=== PATIENT | female | born 1955 | race Caucasian/White ===

== ENCOUNTER 2018-09-11 17:59 | Inpatient (IN) ==
[2018-09-11 23:31] LABS: Hematocrit 18.2 % (35.3-44.9); Hemoglobin 6.1 g/dL (11.5-15.4); Mean Corpuscular HGB Conc 33.5 g/dL (31.6-35.5); Mean Corpuscular Hemoglobin 28.6 pg (28.0-33.3); Mean Corpuscular Volume 85.4 fL (83.0-100.0); Mean Platelet Volume 10.6 fL (9.4-12.4); Nucleated Red Blood Cells 5.5 /100 WBC (0); Platelet Count 166 K/mcL (140-400); Red Blood Count 2.13 M/mcL (3.82-4.97); Red Cell Distribution Width 17.2 % (11.5-14.5)
[2018-09-11 23:37] LABS: INR 1.5
[2018-09-11 23:40] LABS: Activated Partial Thrombo Time 28.8 Seconds (26.0-36.0)
[2018-09-11 23:52] LABS: Lymphocytes # 69.8 K/mcL (0.6-4.6); Neutrophils # 174.6 K/mcL (1.6-8.9); Toxic Granulation Present (Not Present)
[2018-09-11 23:53] LABS: Reactive Lymphocytes Present (Not Present)
[2018-09-12] MEDS ORDERED: Naloxone 0.4 MG/ML INJ IVP PRN (00:01)
[2018-09-12 00:03] LABS: Calcium 7.5 mg/dL (8.6-10.3); Magnesium 2.2 mg/dL (1.6-2.6); Potassium 4.4 mEq/L (3.5-5.1)
[2018-09-12] MEDS ORDERED: D5% in Water 1,000 ML IVC PRN (00:06)
[2018-09-12] MEDS ORDERED: Dextrose Gel 15 GM/37.5 ML TUBE PO PRN ×2 (00:06)
[2018-09-12] MEDS ORDERED: *HR* Dextrose 50 % in Water (Syg) 50 ML SYRINGE IVP PRN (00:06)
--- NOTE | 2018-09-12 00:11 | Internal Med History&Physical ---
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 Has not started treatment Discussed with Oncology, Dr. Iniguez Will start allopurinol 300mg once a day, rasburicase, hydroxyurea 1gBID Discussed with pharmacy who state we do not have rasburicase and will need to get it from the cancer center Repeat labs in am Oncology and Orthopedic surgery recommending transfer to tertiary center for further management of CML with possible blast crisis and tumor lysis syndrome as well as left lower extremity hematoma with concern of gas forming organism. Patient;s condition is critical. Discussed with Yesi at [facility] transfer center at 0200. Discussed with them again at 0230. Accepting physician is Dr. Laureano with hematology. They will call back when a bed becomes available. (2) CML (chronic myelocytic leukemia) Current visit: Yes Status: Acute WBC 349.2 D/w oncology. Likely CML with possible blast crisis as blasts in May 2018 elevated at 2 and patient has elevated lymphocytes Peripheral smear, BCR-ABL minor and major quant ordered ordered. Patient will require treatment and Oncology recommending transfer to tertiary facility (3) Hematoma Current visit: Yes Status: Acute CT LLE with concerns of infected hematoma with gas-forming organism. CT A/P with small hematoma in subq fat overlying lateral superior L gluteal musculature extending inferiorly to left leg Patient has no history of aspiration to the left lower extremity. Patient received vancomycin and Zosyn at [facility]. Will continue. Blood cultures pending. Need to monitor for compartment syndrome Discussed with orthopedic surgery, Dr. Ramos, who is also recommending transfer to tertiary facility given the patient's other acute issues (4) Sepsis Current visit: Yes Status: Acute Tachycardia, leukocytosis, tachypnea Elevated lactic acid of >10, now 2.4 Patient did have a period of hypotension requiring levophed. BP now normotensive, off levophed CXR without acute abnormality UA without UTI Blood cultures x2 pending Continue IV vancomycin and zosyn Concern for gas forming organism with hematoma of left lower extremity Qualifiers: Sepsis type: sepsis due to unspecified organism Qualified Code(s): A41.9 - Sepsis, unspecified organism (5) Acute encephalopathy Current visit: Yes Status: Acute Likely metabolic encephalopathy multifactorial due to electrolyte abnormalities, sepsis, metabolic acidosis, possible opiate use Patient is more alert and following commands CT with loss of coughlin/white matter differentiation within superior cerebellum bilaterally Will need MRI to further assess Patient following commands and has non focal exam (6) Elevated troponin Current visit: Yes Status: Acute Troponin elevated at 0.05 and 0.07 No chest pain or history of CAD EKG at [facility] with heart rate 101, no acute ST elevated or depression Likely demand ischemia from metabolic acidosis Continue to trend (7) Metabolic acidosis Current visit: No Status: Acute Initial ABG with pH 7.18, pCO2 14, pO2 57, bicarb 8 Patient has BENNIE with electrolyte abn concerning for tumor lysis syndrome Repeat ABG after sodium bicarb and IVFs at [facility] with pH 7.42, pCO2 33, pO2 61, bicarb 20 Continue maintenance fluids and monitor (8) Acute renal failure Current visit: No Status: Acute Initial BUN 42, Cr 3.66, GFR 12. Repeat BUN 46, Cr 2.80, GFR 17 No history of CKD Associated with electrolyte abnormalities concerning for TLS Continue maintenance fluids and monitor Plan as above (9) Anemia Current visit: No Status: Acute Likely due to extensive hematoma in left lower extremity Hgb 6.2, decreased from 10 Hgb 6.1 here. S/p 1 unit pRBC at [facility] Type and screen and transfuse additonal 2 units pRBCs Continue to monitor H/H Qualifiers: Anemia type: unspecified type Qualified Code(s): D64.9 - Anemia, unspecified (10) Hyperkalemia Current visit: No Status: Resolved Internal Medicine - H&P: HPI Chief complaint: AMS Admitted From: Hospital to Hospital Transfer Plans for Post Hospital Care: Transfer Other ([facility]) History of present illness: Ms. Nair is a 63 year old female with past medical history including hyperlipidemia, hypertension, has MRDD and lives at longterm, able to perform independent tasks and ambulate independently, has home health care givers, presenting as a transfer from [facility] to our ICU. Patient's guardian and family members at bedside to assist with history. Patient was recently diagnosed with leukemia. Family does not know what type of leukemia the patient has. She has an appointment with oncology on September 18. She has not started any treatment for this. 2 days ago, the patient had a mechanical fall. She tripped over her shoe hitting her left knee and left hip. She went to the emergency department at that time. X-ray imaging was obtained that showed no acute fracture of the left knee or hip. She was sent home with Watson for pain as needed. Yesterday, a home health aide arrived to the patient's house and found the patient with an altered mental status and decreas ed alertness. She did take a Watson approximately 8 hours prior to this. As the day went on, the patient still had a decreased mental status from her baseline and was not following commands. She normally is able to speak however she was not speaking. EMS was called and the patient was sent to [facility]. Initial white blood count was greater than 440. Hemoglobin was 6.2. Hematocrit 19.2. MCV 94.6. Platelet count 233. Initial ABG showed pH 7.18, PCO2 14, PO2 57. Potassium was elevated at 6.1. BUN elevated at 42, creatinine 3.66. Patient has no history of chronic kidney disease. The patient was noted to have metabolic acidosis with hyperkalemia, acute renal failure, anemia. CT head was obtained and showed loss of coughlin/white matter differentiation within the superior cerebellum bilaterally. MRI is recommended for further evaluation. On arrival, the patient did have a low blood pressure and received 2 L of normal saline. She did receive an amp of sodium bicarbonate and was started on levophed. Blood cultures were obtained and the patient received vancomycin and Zosyn. The patient also received 1 unit PRBC as her hemoglobin had dropped from 10-6.1. She was sent here for further management. On arrival to our facility, the patient has been oxygenating on nasal cannula. Her blood pressures were normotensive and pressors were discontinued. Patient i s alert and following commands. However she is not talking. Family at bedside state the patient is much more alert however is not back to baseline. Patient does have mild left lower extremity pain. Family states the left knee and lower extremity is much more swollen and has increased bruising from the knee and thigh. She has not been using a walker to ambulate. Family denies any other active bleeding such as hematuria or hematochezia. Past Med Surg Social Fam HX - Past Medical History Source: old records reviewed, obtained from family Medical history: GERD, hyperlipidemia, hypertension, other Additional medical history: MRDD Psychiatric history: anxiety - Social History Smoking Status: Never smoker Smokeless Tobacco Status: No Alcohol use: none Drug use: none Internal Medicine - H&P: Meds ALPRAZolam [Xanax 0.5 MG Tablet] 0.5 mg PO TID PRN 09/10/18 [History] Ferrous Sulfate [Iron] 325 mg PO DAILY 09/10/18 [History] Fesoterodine Fumarate [Toviaz] 8 mg PO DAILY 09/10/18 [History] Omeprazole [PriLOSEC] 20 mg PO BID 09/10/18 [History] RX: Lisinopril [Zestril] 20 mg PO DAILY 09/10/18 [History] RX: Perphenazine 4 mg PO DAILY 09/10/18 [History] Simvastatin [Zocor] 40 mg PO HS 09/10/18 [History] [place]-3 Fatty Acids [Fish Oil] 300 mg PO DAILY 09/11/18 [History] RX: Docusate [Colace] 100 mg PO PRN PRN 09/11/18 [History] Allergy/AdvReac Type Severity Reaction Status Date / Time No Known Allergies Allergy Verified 09/10/18 15:25 ROS unobtainable: due to mental status (altered mental status) All Systems PM: A 10-system review of systems was performed and is negative for pertinent findings except as documented above in the HPI. - Constitutional Vitals: Temp Pulse Resp BP Pulse Ox 96.4 F L 105 22 103/52 97 09/11/18 22:00 09/11/18 23:00 09/11/18 23:00 09/11/18 23:00 09/11/18 23:00 General appearance: Present: cooperative, pleasant, no acute distress Exam: Head: atraumatic, normocephalic Eyes: PERRL, normal conjunctiva ENT: oral mucosa moist Neck: supple, trachea midline Chest: symmetrical chest wall rise Respiratory: clear to auscultation bilaterally without wheezing Cardiovascular: RRR, no murmur. Palpable dorsalis pedis pulses bilaterally Abdomen: soft, nontender, nondistended Extremity: Ruddy bandage removed from left knee. Significant swelling of left knee with ecchymosis and hematoma extending from anterior portion of left knee to posterior thigh into the buttocks. Two bulla on medial left knee. Tender to palpation and decreased ROM secondary to pain and swelling. 1+ pitting edema of left calf. extremities warm with normal capillary refill Neurologic exam: follows commands appropriately. Unable to assess speech or orientation as patient is not speaking. CN II-XII intact. No sensory deficit. Strength diminished bilaterally but equal Psych: normal mood and affect Skin: warm and dry Internal Med - H&P Results - Labs CBC & Chem 7: 09/11/18 22:46 09/11/18 22:46 Labs: Short CBC 09/11/18 Range/Units 22:46 WBC 349.2 H* (4.3-11.1) K/mcL Hgb 6.1 L (11.5-15.4) g/dL Hct 18.2 L (35.3-44.9) % Plt Count 166 (140-400) K/mcL Neutrophils # 174.6 H (1.6-8.9) K/mcL BMP 09/11/18 22:46 Sodium 139 Potassium 4.4 D Chloride 103 Carbon Dioxide 20 L BUN 46 H Creatinine 2.80 H Glucose 117 H Calcium 7.5 L <Elabor,Abdulrahma - Last Filed: 09/12/18 05:57> Date of Encounter: 09/11/18 All Systems PM: A 10-system review of systems was performed and is negative for pertinent findings except as documented above in the HPI. - Constitutional Vitals: Temp Pulse Resp BP Pulse Ox 99.1 F 96 21 99/53 97 09/12/18 00:54 09/12/18 03:16 09/12/18 03:00 09/12/18 03:00 09/12/18 03:00 Internal Med - H&P Results - Labs CBC & Chem 7: 09/12/18 04:37 09/12/18 04:37 Labs: Short CBC 09/11/18 Range/Units 22:46 WBC 349.2 H* (4.3-11.1) K/mcL Hgb 6.1 L (11.5-15.4) g/dL Hct 18.2 L (35.3-44.9) % Plt Count 166 (140-400) K/mcL Neutrophils # 174.6 H (1.6-8.9) K/mcL BMP 09/11/18 22:46 Sodium 139 Potassium 4.4 D Chloride 103 Carbon Dioxide 20 L BUN 46 H Creatinine 2.80 H Glucose 117 H Calcium 7.5 L Cardiac Enzymes 09/11/18 Range/Units 22:46 Troponin I 0.07 H* (< 0.04) ng/mL - Impressions ITS Impressions Abdomen/Pelvis CT 09/12/18 00:01 IMPRESSION: 1. Small hematoma in the subcutaneous fat overlying the lateral superior left gluteal musculature. There is significant infiltration of the subcutaneous fat extending from this site inferiorly into the left leg. No acute osseous abnormality is identified. 2. Hepatosplenomegaly. D/ / Tariq Tate MD / Tariq Tate MD Interpreting Provider: Tariq Tate MD Lower Extremity CT 09/12/18 00:01 IMPRESSION: No acute bony abnormalities. Large mildly heterogeneous high attenuation fluid collection, partially imaged, within the subcutaneous fat of the visualized left lower extremity within visualized thigh medially and into the anterior knee felt to be compatible with large hematoma. Proximal aspect excluded from field of view. No thickened rim identified. However, there are some punctate foci of gas noted within portions of the collection in the mid to distal thigh. Correlate clinically as to recent aspiration or other intervention. In the absence of this a secondarily infected hematoma with gas-forming organism cannot be excluded and consideration can be given to aspiration. D/ / Stanley Martinez MD / Stanley Martinez MD Interpreting Provider: Stanley Martinez MD - Attending Attestation I performed a history and physical exam of the patient on 09/11/18 and discussed management with the resident. I reviewed the resident's note and agree with the documented findings and plan of care. Nataliia Nair is a 63 year old woman with MRDD and CML who reportedly suffered a fall recently with trauma to her left knee. She was given pain medications for the hematoma formation. Staff from her longterm brought her back to the ER for AMS, seemingly less responsive and not answering commands. Lab work revealed a marked elevation in her leukocyte count, elevsted serum creatinine, potassium, phosphorus and uric acid which is suspicious to me for tumor lysis syndrome. Her initial lactate was also greater than 10. This summer physical exam, her knee dressing was on done for our visualization and revealed a significantly edematous lower extremity with taut skin, circumferentially tense with some bullae formation and massive ecchymotic/hematoma formation in the medial aspect of the leg. Fluid resuscitati on/vasopressor support was started for her hypotension, empiric abx and measures to countrt the tumor lydid Fluid resuscitation/vasopressor support was started for her hypotension, empiric abx and measures to counter the tumor lysis were instituted promptly. She has diminished pulses on the left leg which concerned me for compartment syndrome and therefore a CT scan was done of her leg, revealing foci of gas as well as a massive hematoma. Given the drop in her hemoglobin I wanted to assess for bleeding elsewhere so a CT abdomen was done also showing bloody changes too. We contacted our orthopedics and oncology consultants who state that she will be better served being transferred to [facility]. In the interim will transfuse her blood, provide the necessary intensive care prior to transfer. CCT 65 mins. MARIA DE JESUS LEBRON.
[2018-09-12] MEDS ORDERED: RASBURICASE IV ONE ×3 (01:18→08:45)
[2018-09-12] MEDS ORDERED: SODIUM CHLORIDE 0.9% IV ONE ×3 (01:18→08:45)
[2018-09-12 01:31] LABS: Troponin I 0.07 ng/mL (< 0.04)
[2018-09-12] MEDS: Hydroxyurea 500 MG CAPSULE PO SCH ×3 (02:09→08:45)
[2018-09-12] MEDS: 0.9 % Sodium Chloride 1,000 ML IVC SCH ×2 (02:09→10:57)
[2018-09-12 05:08] LABS: Nucleated Red Blood Cells 4.9 /100 WBC (0)
[2018-09-12 05:09] LABS: Hematocrit 17.5 % (35.3-44.9); Mean Corpuscular HGB Conc 33.1 g/dL (31.6-35.5); Mean Corpuscular Hemoglobin 28.2 pg (28.0-33.3); Mean Platelet Volume 10.4 fL (9.4-12.4); Platelet Count 156 K/mcL (140-400); Red Blood Count 2.06 M/mcL (3.82-4.97); Red Cell Distribution Width 17.3 % (11.5-14.5)
[2018-09-12 05:20] LABS: Albumin 3.5 g/dL (3.5-5.7); Albumin/Globulin Ratio 1.8 (1.1-2.2); Bilirubin,Direct 0.1 mg/dL (0.0-0.2); Bilirubin,Indirect 0.2 mg/dL (0.0-1.2); Bilirubin,Total 0.3 mg/dL (0.3-1.0); Calcium 7.4 mg/dL (8.6-10.3); Magnesium 2.1 mg/dL (1.6-2.6); Phosphorous 6.3 mg/dL (2.7-4.5); Potassium 4.6 mEq/L (3.5-5.1); Total Protein 5.5 g/dL (6.4-8.9)
[2018-09-12 05:40] LABS: Hemoglobin 5.8 g/dL (11.5-15.4)
[2018-09-12] MEDS ORDERED: Piperacillin/Tazobactam 3.375 GM in 0.9 % Sodium Chloride Mini Bag 100 ML IVPB SCH (06:00)
[2018-09-12 06:25] LABS: Basophils # 11.3 K/mcL (0.0-0.2); Eosinophils # 5.7 K/mcL (0.0-0.6); Monocytes # 11.3 K/mcL (0.0-1.3); Neutrophils # 130.2 K/mcL (1.6-8.9)
[2018-09-12 06:26] LABS: Platelet Estimate Normal (Normal)
[2018-09-12 06:28] LABS: Hypochromasia Present (Not Present); Macrocytosis Present (Not Present); Polychromasia 1+ (Not Present)
[2018-09-12 06:29] LABS: Smudge Cells Present (Not Present)
[2018-09-12 06:30] LABS: Large Platelets Present (Not Present)
[2018-09-12] MEDS ORDERED: Clindamycin 900 MG/50 ML 900 MG/50 ML IV.SOLN IVPB SCH (09:00)
[2018-09-12] MEDS ORDERED: Hydroxyurea 500 MG CAPSULE PO SCH ×2 (09:00)
[2018-09-12] MEDS ORDERED: Perphenazine 2 MG TABLET PO SCH (09:00)
[2018-09-12] MEDS ORDERED: Vancomycin 500 MG in 0.9 % Sodium Chloride Mini Bag 100 ML IVPB ONE (09:00)
[2018-09-12 10:25] LABS: INR 1.4; Prothrombin Time 15.7 Seconds (9.4-12.1)
--- NOTE | 2018-09-12 10:56 | Pulmonology Progress Note ---
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 Current Visit: Yes Status: Acute (2) Knee contusion Current Visit: No Status: Acute (3) Metabolic acidosis Current Visit: No Status: Acute (4) Acute renal failure Current Visit: No Status: Acute Qualifiers: Acute renal failure type: unspecified Qualified Code(s): N17.9 - Acute kidney failure, unspecified (5) CML (chronic myelocytic leukemia) Current Visit: Yes Status: Acute (6) Tumor lysis syndrome Current Visit: Yes Status: Acute (7) Sepsis Current Visit: Yes Status: Acute Qualifiers: Sepsis type: sepsis due to unspecified organism Qualified Code(s): A41.9 - Sepsis, unspecified organism Objective PUL Vital signs: Last Vital Signs Temp 98.8 F 09/12/18 12:15 Pulse 90 09/12/18 12:15 Resp 16 09/12/18 12:15 BP 99/45 09/12/18 12:15 Pulse Ox 95 09/12/18 12:15 Results - Laboratory Findings CBC and BMP: 09/12/18 11:00 09/12/18 04:37 PT/INR, D-dimer PT 15.7 Seconds (9.4-12.1) H 09/12/18 09:41 Abnormal lab findings: Abnormal lab results WBC 242.5 K/mcL (4.3-11.1) H* 09/12/18 11:00 RBC 2.03 M/mcL (3.82-4.97) L 09/12/18 11:00 Hgb 5.7 g/dL (11.5-15.4) L* 09/12/18 11:00 Hct 16.7 % (35.3-44.9) L 09/12/18 11:00 MCV 82.3 fL (83.0-100.0) L 09/12/18 11:00 RDW 17.4 % (11.5-14.5) H 09/12/18 11:00 Band Neutrophils % 6.0 % (0-4) H 09/12/18 04:37 Metamyelocytes % 2.0 % (0) H 09/12/18 04:37 Myelocytes % 24.0 % (0) H 09/12/18 04:37 Promyelocytes % 6.0 % (0) H 09/12/18 04:37 Neutrophils # 130.2 K/mcL (1.6-8.9) H 09/12/18 04:37 Lymphocytes # 34.0 K/mcL (0.6-4.6) H 09/12/18 04:37 Monocytes # 11.3 K/mcL (0.0-1.3) H 09/12/18 04:37 Eosinophils # 5.7 K/mcL (0.0-0.6) H 09/12/18 04:37 Basophils # 11.3 K/mcL (0.0-0.2) H 09/12/18 04:37 Nucleated RBCs/100 WBC 4.9 /100 WBC (0) H 09/12/18 04:37 Reactive Lymphocytes Present (Not Present) A 09/11/18 22:46 Smudge Cells Present (Not Present) A 09/12/18 04:37 Toxic Granulation Present (Not Present) A 09/11/18 22:46 Large Platelets Present (Not Present) A 09/12/18 04:37 Polychromasia 1+ (Not Present) A 09/12/18 04:37 Hypochromasia Present (Not Present) A 09/12/18 04:37 Macrocytosis Present (Not Present) A 09/12/18 04:37 PT 15.7 Seconds (9.4-12.1) H 09/12/18 09:41 Carbon Dioxide 20 mEq/L (23-29) L 09/12/18 04:37 BUN 49 mg/dL (8-23) H 09/12/18 04:37 Creatinine 2.44 mg/dL (0.60-1.20) H 09/12/18 04:37 Est GFR ( Amer) 24 (> 60) L 09/12/18 04:37 Est GFR (Non-Af Amer) 20 (> 60) L 09/12/18 04:37 Calculated Osmolality 303 (280-300) H 09/12/18 04:37 Uric Acid 12.8 mg/dL (2.3-7.6) H 09/12/18 11:00 Calcium 7.4 mg/dL (8.6-10.3) L 09/12/18 04:37 Phosphorus 6.3 mg/dL (2.7-4.5) H 09/12/18 04:37 AST 64 Units/L (13-39) H 09/12/18 04:37 Lactate Dehydrogenase 1003 Units/L (140-271) H 09/12/18 04:37 Creatine Kinase 1162 Units/L (30-223) H 09/12/18 09:30 Troponin I 0.07 ng/mL (< 0.04) H* 09/11/18 22:46 Serum Total Protein 5.5 g/dL (6.4-8.9) L 09/12/18 04:37 Globulin 2.0 g/dL (2.4-3.5) L 09/12/18 04:37 - Microbiology Findings Microbiology Findings: Microbiology, Last 48 Hours 09/11/18 23:07 Blood Culture - Preliminary Peripheral Venipuncture Culture is incubating and being continuously monitored for growth. Final report to follow. 09/11/18 23:11 Blood Culture - Preliminary Peripheral Venipuncture Culture is incubating and being continuously monitored for growth. Final report to follow. - Clinical Findings Intake & Output: Intake & Output 09/11/18 09/12/18 09/12/18 23:59 07:59 15:59 Intake Total 1385 / 1385 Output Total 775 / 775 175 / 175 Balance -775 / -775 1210 / 1210 Weight 66.4 kg 66.4 kg Consult Discharge Plan - Plan Referrals: NONE,PCP [Primary Care Provider] - - Attending Attestation I examined this patient and my medical decision-making was reviewed with the Resident Physician. I agree with the documented findings, disposition and treatment plan as described except to the extent set forth below. We independently had [id number] contact with the patient I spent 45min of Critical Care time with this patient. It involved decision making of high complexity to assess, manipulate, and support vital organ system failure and/or to prevent further life threatening deterioration of the patient's condition. The time involved in the performance of separately reportable procedures was not counted toward critical care time. Patient seen and examined at bedside Labs, radiology, chart personally reviewed. Management was reviewed during multidisciplinary critical care rounds. DIRECTOR OF CATERING: Patient is awake and following commands no gross deficits. Head CT done overnight showed loss of coughlin/white matter differentiation within this. Cerebellum bilaterally and MRI was recommended do not feel the patient is stable for MRI at this moment and currently neurologically intact and we will continue to monitor this very closely however. Pulm: Acceptable oxygenation on 2LNC can use PAP as needed for hypoxia she is at risk of hydrostatic pulmonary edema because of volume overload Cards: BP monitored has been on lower side but no evidence of shock physiology. MAP has been >65 GI: NPO for now Renal: BENNIE s/t to Rhabdo and TLS. Cont Fluid Hydration. UOP Monitored, Cont to Trend sCr and monitor Electrolytes. ID: [id number] for severe sepsis ?infection of LE with Gas forming organism cont broad-spectrum antibiotic she was started on the Zosyn and vancomycin and I have added clindamycin we will de-escalate based upon culture and sensitivities. May need surgical intervention and Ortho has been consulted Heme/Onc: New diagnosis of CML suspect blast crisis hydroxyurea has been given. Patient also has tumor lysis syndrome and has been started on rasburicase and allopurinol appreciate oncology recommendations. Repeat uric acid pending. She does have evidence of daily a which to some degree is likely related to blood loss in addition to leukemia plan for transfusion Endo: Glucose Monitored Integ/MSK: Skin Care per routine ICU Nursing Protocol to prevent ulcers. Lines: All lines examined without evidence of infection : She does have an e xpanding left knee hematoma and I have concern for developing compartment syndrome CPK is elevated today but lower extremity on the left is neurovascularly intact. I have spoken directly with the orthopedic surgeon attending Dr. Ramos regarding my concern for evaluation of compartment syndrome and/or developing thereof. His recommendations were to consult interventional radiology for possible drainage and did agree to come and evaluate the patient Dispo: Tertiary Referral [facility] ([facility]) CODE: DNAR/DNI Patient is MRDD and has a legal guardian who I updated regarding clinical course. Patient high risk of further deterioration <Elysia Al P - Last Filed: 09/12/18 17:30> Date of Encounter: 09/12/18 Time of Encounter: 10:00 Assessment and Plan (1) Tumor lysis syndrome Current Visit: Yes Status: Acute The patient has history of CML with blast crisis phase She has elevated white cell count 349.2- 242.5 (the latest one) The patient has BUN 49 and creatinine 2.44, lactate dehydrogenase 1003, uric acid level 12.8 ,creatinine kinase 1162, troponin 0.07, phosphorus 6.3, calcium 7.4 Plan : Oncology team has been consulted Allopurinol has been started, hydroxyurea and rasburicase has also been ordered. IV hydration with with Ringer lactate . (2) Traumatic hematoma of left lower leg with infection Current Visit: Yes Status: Acute The patient has history of fall and injury to left lower extremity, swelling and bruises over left high and leg T LLE with concerns of infected hematoma with gas-forming organism. CT A/P with small hematoma in subq fat overlying lateral superior L gluteal musculature extending inferiorly to left leg Patient has no history of aspiration to the left lower extremity. Patient received vancomycin and Zosyn at [place]. Will continue. Blood cultures pending. Need to monitor for compartment syndrome Discussed with orthopedic surgery, Dr. Ramos, who is also recommending transfer to tertiary facility given the patient's other acute issues. (3) Acute renal failure Current Visit: No Status: Acute Initial BUN 42, Cr 3.66, GFR 12. Repeat BUN 46, Cr 2.80, GFR 17 No history of CKD Associated with electrolyte abnormalities concerning for TLS Continue maintenance fluids and monitor Qualifiers: Acute renal failure type: unspecified Qualified Code(s): N17.9 - Acute kidney failure, unspecified (4) CML (chronic myelocytic leukemia) Current Visit: Yes Status: Acute WBC 349.2 D/w oncology. Likely CML with possible blast crisis as blasts in May 2018 elevated at 2 and patient has elevated lymphocytes Peripheral smear, BCR-ABL minor and major quant ordered ordered. Patient will require treatment and Oncology recommending transfer to tertiary facility (5) Acute encephalopathy Current Visit: Yes Status: Acute Likely metabolic encephalopathy multifactorial due to electrolyte abnormalities, sepsis, metabolic acidosis, possible opiate use Patient is more alert and following commands CT with loss of coughlin/white matter differentiation within superior cerebellum bilaterally Will need MRI to further assess Patient following commands and has non focal exam (6) Sepsis Current Visit: Yes Status: Acute Tachycardia, leukocytosis, tachypnea Elevated lactic acid of >10, now 2.4 Patient did have a period of hypotension requiring levophed. BP now normotensive, off levophed CXR without acute abnormality UA without UTI Blood cultures x2 pending Continue IV vancomycin and zosyn Concern for gas forming organism with hematoma of left lower extremity Qualifiers: Sepsis type: sepsis due to unspecified organism Qualified Code(s): A41.9 - Sepsis, unspecified organism (7) Anemia Current Visit: No Status: Acute Likely due to extensive hematoma in left lower extremity Hgb 6.2, decreased from 10 Hgb 6.1 here. S/p 1 unit pRBC at [facility] and screen and transfuse additonal 2 units pRBCs Continue to monitor H/H Qualifiers: Anemia type: unspecified type Qualified Code(s): D64.9 - Anemia, unspecified Subjective Principal diagnosis: CML, Tumour lysis syndrom , Acute encephalopathy,infected hematomal LLE Interval history: He is 63 year old female with past medical history including hyperlipidemia, hypertension, has MRDD and [facility], able to perform independent tasks and ambulate independently, has home health care givers, presenting as a transfer from [facility] to our ICU on 09/11. Patient has history of fall at home and altered mental status from baseline. The patient has had swelling and bruises over left lower extremity. Today during my bedside visit, the patient was lying on the bed, she was sleepy and confused, not in acute respiratory distress. Her vitals were blood pressure 112/50, saturation 93% with 2 L oxygen, pulse 81, respiration rate 20. Oncology team and orthopedic team has been consulted, patient was suggested to transfer to another center for further management. Today she has been transferred to [facility]. Objective PUL Vital signs: Last Vital Signs Temp 99.3 F 09/12/18 07:30 Pulse 90 09/12/18 09:00 Resp 20 09/12/18 09:00 BP 113/54 09/12/18 09:00 Pulse Ox 98 09/12/18 09:00 General appearance: appears uncomfortable Eyes: nonicteric ENT: oropharynx dry Neck: supple Effort: mildly labored Cardiovascular: regular rate and rhythm Gastrointestinal: normoactive bowel sounds, soft, non-tender, non-distended Integumentary: normal Extremities: pink and warm, edema, other (Swelling , bruises over left thigh /anetromedially and left lower leg ) Musculoskeletal: joint tenderness CN II-XII normal other (Pt was confused and sleepy ) Results - Laboratory Findings CBC and BMP: 09/12/18 11:00 09/12/18 04:37 PT/INR, D-dimer PT 15.7 Seconds (9.4-12.1) H 09/12/18 09:41 Abnormal lab findings: Abnormal lab results WBC 283.0 K/mcL (4.3-11.1) H* 09/12/18 04:37 RBC 2.06 M/mcL (3.82-4.97) L 09/12/18 04:37 Hgb 5.8 g/dL (11.5-15.4) L* 09/12/18 04:37 Hct 17.5 % (35.3-44.9) L 09/12/18 04:37 RDW 17.3 % (11.5-14.5) H 09/12/18 04:37 Band Neutrophils % 6.0 % (0-4) H 09/12/18 04:37 Metamyelocytes % 2.0 % (0) H 09/12/18 04:37 Myelocytes % 24.0 % (0) H 09/12/18 04:37 Promyelocytes % 6.0 % (0) H 09/12/18 04:37 Neutrophils # 130.2 K/mcL (1.6-8.9) H 09/12/18 04:37 Lymphocytes # 34.0 K/mcL (0.6-4.6) H 09/12/18 04:37 Monocytes # 11.3 K/mcL (0.0-1.3) H 09/12/18 04:37 Eosinophils # 5.7 K/mcL (0.0-0.6) H 09/12/18 04:37 Basophils # 11.3 K/mcL (0.0-0.2) H 09/12/18 04:37 Nucleated RBCs/100 WBC 4.9 /100 WBC (0) H 09/12/18 04:37 Reactive Lymphocytes Present (Not Present) A 09/11/18 22:46 Smudge Cells Present (Not Present) A 09/12/18 04:37 Toxic Granulation Present (Not Present) A 09/11/18 22:46 Large Platelets Present (Not Present) A 09/12/18 04:37 Polychromasia 1+ (Not Present) A 09/12/18 04:37 Hypochromasia Present (Not Present) A 09/12/18 04:37 Macrocytosis Present (Not Present) A 09/12/18 04:37 PT 15.7 Seconds (9.4-12.1) H 09/12/18 09:41 Carbon Dioxide 20 mEq/L (23-29) L 09/12/18 04:37 BUN 49 mg/dL (8-23) H 09/12/18 04:37 Creatinine 2.44 mg/dL (0.60-1.20) H 09/12/18 04:37 Est GFR ( Amer) 24 (> 60) L 09/12/18 04:37 Est GFR (Non-Af Amer) 20 (> 60) L 09/12/18 04:37 Calculated Osmolality 303 (280-300) H 09/12/18 04:37 Uric Acid 17.9 mg/dL (2.3-7.6) H 09/11/18 22:47 Calcium 7.4 mg/dL (8.6-10.3) L 09/12/18 04:37 Phosphorus 6.3 mg/dL (2.7-4.5) H 09/12/18 04:37 AST 64 Units/L (13-39) H 09/12/18 04:37 Lactate Dehydrogenase 1003 Units/L (140-271) H 09/12/18 04:37 Creatine Kinase 1162 Units/L (30-223) H 09/12/18 09:30 Troponin I 0.07 ng/mL (< 0.04) H* 09/11/18 22:46 Serum Total Protein 5.5 g/dL (6.4-8.9) L 09/12/18 04:37 Globulin 2.0 g/dL (2.4-3.5) L 09/12/18 04:37 - Microbiology Findings Microbiology Findings: Microbiology, Last 48 Hours 09/11/18 23:07 Blood Culture - Preliminary Peripheral Venipuncture Culture is incubating and being continuously monitored for growth. Final report to follow. 09/11/18 23:11 Blood Culture - Preliminary Peripheral Venipuncture Culture is incubating and being continuously monitored for growth. Final report to follow. - Clinical Findings Intake & Output: Intake & Output 09/11/18 09/12/18 09/12/18 23:59 07:59 15:59 Output Total 775 / 775 Balance -775 / -775 Weight 66.4 kg 66.4 kg
--- NOTE | 2018-09-12 11:07 | Event Note ---
Date of Encounter: 09/12/18 Time of Encounter: 11:05 Overview in brief full note to come Patient was signed out to me by the overnight covering resident at 7 AM overnight diagnosis include CML with the possible blast crisis and tumor lysis syndrome and traumatic hematoma with concern for expansion along with the severe sepsis possibly gas-forming organism from infection of the left knee hematoma. Patient has been accepted in transfer to [facility] in interim rasburicase has been given along with allopurinol and hydroxyurea at the consultation with the oncologist. I have also consulted orthopedic surgery to evaluate the patient for evaluation of compartment syndrom.e CPK level this morning was approx 1200 and patient remains on broad-spectrum antibiotics with the addition of clindamycin. The patient has MRDD and I did update her legal guardian with the plan of care
[2018-09-12] MEDS ORDERED: 0.9 % Sodium Chloride 250 ML ONE (11:09)
[2018-09-12] MEDS ORDERED: Ringers Solution, Lactated 1,000 ML IVC SCH (11:15)
[2018-09-12 11:16] LABS: Red Blood Count 2.03 M/mcL (3.82-4.97); Red Cell Distribution Width 17.4 % (11.5-14.5)
[2018-09-12 11:17] LABS: Hematocrit 16.7 % (35.3-44.9); Mean Corpuscular HGB Conc 34.1 g/dL (31.6-35.5); Mean Corpuscular Hemoglobin 28.1 pg (28.0-33.3); Mean Corpuscular Volume 82.3 fL (83.0-100.0); Mean Platelet Volume 10.8 fL (9.4-12.4); Platelet Count 150 K/mcL (140-400)
[2018-09-12 12:20] LABS: Hemoglobin 5.7 g/dL (11.5-15.4)
--- NOTE | 2018-09-12 13:24 | Orthopedic Consult Note ---
Date of Encounter: 09/13/18 Time of Encounter: 12:40 Assessment and Plan (1) Hematoma Status: Acute Discussed case with Dr. Ramos and reviewed CT with him. CT shows large fluid collection to the medial thigh and anterior knee consistent with large hematoma with punctate foci of gas and recommendation for aspiration. Large hematoma is visibly noted to medial thigh/anterior knee on exam, compartments are soft and no concern for compartment syndrome at this time. Due to patients medical history/ CML not recommended as a surgical candidate at this time. Recommend IR do a CT guided aspiration of the hematoma and leave a drain in for probable continued drainage. Recommend culture of the fluid as well due to the gas formation shown on CT. Patient is planned for transfer to [facility] once a bed is available and per nurse will possibly be transfered soon before aspiration can be performed. Can apply compression nita wraps to help prevent hematoma increasing in size Will continue to monitor while patient still at [place] if surgical intervention becomes necessary but again transfer will likely happen today. Pain control per primary team. Lower Extremity CT 09/12/18 00:01 IMPRESSION: No acute bony abnormalities. Large mildly heterogeneous high attenuation fluid collection, partially imaged, within the subcutaneous fat of the visualized left lower extremity within visualized thigh medially and into the anterior knee felt to be compatible with large hematoma. Proximal aspect excluded from field of view. No thickened rim identified. However, there are some punctate foci of gas noted within portions of the collection in the mid to distal thigh. Correlate clinically as to recent aspiration or other intervention. In the absence of this a secondarily infected hematoma with gas-forming organism cannot be excluded and consideration can be given to aspiration. D/ / 09/12/2018 07:11:51 Stanley Martinez MD / [email or web address] Interpreting Provider: Stanley Martinez MD History of Present Illness Chief complaint: left leg swelling HPI: Ms. Nair is a 63 year old female with medical history of HTN, HLB, MRDD living in a skilled nursing and recent diagnosis of CML was originally seen in the ER for left knee pain on 09/10 after she tripped over her shoes at home that day. Xrays at that time showed no acute bony abnormalities and she was discharged with norco. She was taken to [facility] early this morning by EMS due to altered mental status and was transferred to [facility] ICU due to findings of sepsis, metabolic acidosis, acute renal failure, hyperkalemia, anemia, tumor lysis syndrome, acute encephalopathy. Orthopedics was consulted due to large traumatic hematoma to left medial thigh and anterior knee. CT showed large fluid collection consistent with a hematoma with punctate foci of gas formation. Patient was sleeping on exam, nurse present states patient has been very drowsy since admission and no family present. All history from nurse and previous documentation. Patient is planned to transfer to [facility] for further care as soon as a bed becomes available. Past Med Surg Social Fam HX - Past Medical History Medical history: GERD, hyperlipidemia, hypertension, other Additional medical history: MRDD Psychiatric history: anxiety - Social History Smoking Status: Never smoker Smokeless Tobacco Status: No Alcohol use: none Drug use: none Medications and Allergies ALPRAZolam [Xanax 0.5 MG Tablet] 0.5 mg PO TID PRN 09/10/18 [History] Ferrous Sulfate [Iron] 325 mg PO DAILY 09/10/18 [History] Fesoterodine Fumarate [Toviaz] 8 mg PO DAILY 09/10/18 [History] Lisinopril [Zestril] 20 mg PO DAILY 09/10/18 [History] Omeprazole [PriLOSEC] 20 mg PO BID 09/10/18 [History] Perphenazine 4 mg PO DAILY 09/10/18 [History] Simvastatin [Zocor] 40 mg PO HS 09/10/18 [History] Docusate [Colace] 100 mg PO PRN PRN 09/11/18 [History] Drums-3 Fatty Acids [Fish Oil] 300 mg PO DAILY 09/11/18 [History] Allergy/AdvReac Type Severity Reaction Status Date / Time No Known Allergies Allergy Verified 09/10/18 15:25 ROS unobtainable: due to mental status All Systems Reviewed: The remainder of the systems were reviewed and are negative Physical Exam - Constitutional Vitals: Temp Pulse Resp BP Pulse Ox 98.8 F 90 16 99/45 95 09/12/18 12:15 09/12/18 12:15 09/12/18 12:15 09/12/18 12:15 09/12/18 12:15 - Knee left Appearance: ecchymosis (There is swelling and significant ecchymosis noted to left medial thigh/knee extending to anterior knee. no noted erythema. small fluid blisters noted to medial thigh. compartments are soft to palpation. no pain response ellicited with palpation of the hip, knee or calf. Patient unable to follow commands at this time. pedal pulse noted, brisk cap refill to digits.) Results - Labs Result Diagrams: 09/12/18 11:00 09/12/18 04:37 Labs: Abnormal lab results WBC 242.5 K/mcL (4.3-11.1) H* 09/12/18 11:00 RBC 2.03 M/mcL (3.82-4.97) L 09/12/18 11:00 Hgb 5.7 g/dL (11.5-15.4) L* 09/12/18 11:00 Hct 16.7 % (35.3-44.9) L 09/12/18 11:00 MCV 82.3 fL (83.0-100.0) L 09/12/18 11:00 RDW 17.4 % (11.5-14.5) H 09/12/18 11:00 Band Neutrophils % 6.0 % (0-4) H 09/12/18 04:37 Metamyelocytes % 2.0 % (0) H 09/12/18 04:37 Myelocytes % 24.0 % (0) H 09/12/18 04:37 Promyelocytes % 6.0 % (0) H 09/12/18 04:37 Neutrophils # 130.2 K/mcL (1.6-8.9) H 09/12/18 04:37 Lymphocytes # 34.0 K/mcL (0.6-4.6) H 09/12/18 04:37 Monocytes # 11.3 K/mcL (0.0-1.3) H 09/12/18 04:37 Eosinophils # 5.7 K/mcL (0.0-0.6) H 09/12/18 04:37 Basophils # 11.3 K/mcL (0.0-0.2) H 09/12/18 04:37 Nucleated RBCs/100 WBC 4.9 /100 WBC (0) H 09/12/18 04:37 Reactive Lymphocytes Present (Not Present) A 09/11/18 22:46 Smudge Cells Present (Not Present) A 09/12/18 04:37 Toxic Granulation Present (Not Present) A 09/11/18 22:46 Large Platelets Present (Not Present) A 09/12/18 04:37 Polychromasia 1+ (Not Present) A 09/12/18 04:37 Hypochromasia Present (Not Present) A 09/12/18 04:37 Macrocytosis Present (Not Present) A 09/12/18 04:37 PT 15.7 Seconds (9.4-12.1) H 09/12/18 09:41 Carbon Dioxide 20 mEq/L (23-29) L 09/12/18 04:37 BUN 49 mg/dL (8-23) H 09/12/18 04:37 Creatinine 2.44 mg/dL (0.60-1.20) H 09/12/18 04:37 Est GFR ( Amer) 24 (> 60) L 09/12/18 04:37 Est GFR (Non-Af Amer) 20 (> 60) L 09/12/18 04:37 Calculated Osmolality 303 (280-300) H 09/12/18 04:37 Uric Acid 12.8 mg/dL (2.3-7.6) H 09/12/18 11:00 Calcium 7.4 mg/dL (8.6-10.3) L 09/12/18 04:37 Phosphorus 6.3 mg/dL (2.7-4.5) H 09/12/18 04:37 AST 64 Units/L (13-39) H 09/12/18 04:37 Lactate Dehydrogenase 1003 Units/L (140-271) H 09/12/18 04:37 Creatine Kinase 1162 Units/L (30-223) H 09/12/18 09:30 Troponin I 0.07 ng/mL (< 0.04) H* 09/11/18 22:46 Serum Total Protein 5.5 g/dL (6.4-8.9) L 09/12/18 04:37 Globulin 2.0 g/dL (2.4-3.5) L 09/12/18 04:37 H & H 09/11/18 09/12/18 09/12/18 Range/Units 22:46 04:37 11:00 Hgb 6.1 L 5.8 L* 5.7 L* (11.5-15.4) g/dL Hct 18.2 L 17.5 L 16.7 L (35.3-44.9) % All other labs normal. - Diagnostic results Knee x-ray: report reviewed, image reviewed Knee CT: report reviewed, image reviewed Consult Discharge Plan - Plan Referrals: NONE,PCP [Primary Care Provider] - - Attending Attestation Case and plan of care discussed with supervising physician, Dr. Ramos, who was available for all aspects of care.
--- NOTE | 2018-09-12 13:54 | Oncology Inp Consult Note ---
Date of Encounter: 09/12/18 - Data of Consult Requesting Physician: Stanley Pond Primary Care Provider: PCP NONE Past Med Surg Social Fam HX - Past Medical History Medical history: GERD, hyperlipidemia, hypertension, other Additional medical history: MRDD Psychiatric history: anxiety - Social History Smoking Status: Never smoker Smokeless Tobacco Status: No Alcohol use: none Drug use: none Medications and Allergies ALPRAZolam [Xanax 0.5 MG Tablet] 0.5 mg PO TID PRN 09/10/18 [History] Ferrous Sulfate [Iron] 325 mg PO DAILY 09/10/18 [History] Fesoterodine Fumarate [Toviaz] 8 mg PO DAILY 09/10/18 [History] Lisinopril [Zestril] 20 mg PO DAILY 09/10/18 [History] Omeprazole [PriLOSEC] 20 mg PO BID 09/10/18 [History] Perphenazine 4 mg PO DAILY 09/10/18 [History] Simvastatin [Zocor] 40 mg PO HS 09/10/18 [History] Docusate [Colace] 100 mg PO PRN PRN 09/11/18 [History] Vanzant-3 Fatty Acids [Fish Oil] 300 mg PO DAILY 09/11/18 [History] Allergy/AdvReac Type Severity Reaction Status Date / Time No Known Allergies Allergy Verified 09/10/18 15:25 Consult Discharge Plan - Plan Referrals: NONE,PCP [Primary Care Provider] -
[2018-09-12 16:12] VITALS: BP 112/50
[2018-09-12] MEDS ORDERED: Aminoglycoside Consult 1 EACH MC ONE (16:34)
--- NOTE | 2018-09-12 17:30 | Discharge Summary ---
<Elysia Al P - Last Filed: 09/13/18 06:45> - NOTES TO OUTPATIENT PROVIDER Notes to Outpatient Provider: Patient has been transferred to [facility]: [facility] on 09/12/2018 @ 4;30 PM Orders not resulted at time of discharge: Pending orders 09/11/18 23:07 Culture,Blood [BC] Stat 09/12/18 04:37 BCR-ABL1 Major(p210) Quant Stat BCR-ABL1 Minor(p190) Quant Stat 09/12/18 09:46 Red Blood Cells [BBK] Stat Type and Screen [BBK] Stat 09/12/18 13:43 BCR-ABL1t(9;22)Diag,Rflx Quant Stat 09/12/18 16:00 Lactate [Lactic Acid] Timed Date of Encounter: 09/13/18 Time of Encounter: 06:46 - Discharge Diagnosis (1) Tumor lysis syndrome Priority: Primary Status: Acute (2) Traumatic hematoma of left lower leg with infection Priority: Primary Status: Acute Qualifiers: Encounter type: initial encounter Qualified Code(s): S80.12XA - Contusion of left lower leg, initial encounter; L08.9 - Local infection of the skin and subcutaneous tissue, unspecified (3) Acute renal failure Priority: Primary Status: Acute Qualifiers: Acute renal failure type: unspecified Qualified Code(s): N17.9 - Acute ki dney failure, unspecified (4) CML (chronic myelocytic leukemia) Priority: Primary Status: Acute (5) Acute encephalopathy Priority: Primary Status: Acute (6) Sepsis Priority: Primary Status: Acute Qualifiers: Sepsis type: sepsis due to unspecified organism Qualified Code(s): A41.9 - Sepsis, unspecified organism (7) Anemia Priority: Primary Status: Acute Qualifiers: Anemia type: unspecified type Qualified Code(s): D64.9 - Anemia, unspecified - Discharge Medications Prescriptions: Continue RX: Docusate [Colace] 100 mg PO PRN PRN PRN Reason: Constipation RX: [place]-3 Fatty Acids [Fish Oil] 300 mg PO DAILY RX: ALPRAZolam [Xanax 0.5 MG Tablet] 0.5 mg PO TID PRN PRN Reason: Anxiety RX: Simvastatin [Zocor] 40 mg PO HS RX: Fesoterodine Fumarate [Toviaz] 8 mg PO DAILY RX: Ferrous Sulfate [Iron] 325 mg PO DAILY RX: Perphenazine 4 mg PO DAILY RX: Omeprazole [PriLOSEC] 20 mg PO BID RX: Lisinopril [Zestril] 20 mg PO DAILY Home Medications: RX: ALPRAZolam [Xanax 0.5 MG Tablet] 0.5 mg PO TID PRN 09/10/18 [History] RX: Ferrous Sulfate [Iron] 325 mg PO DAILY 09/10/18 [History] RX: Fesoterodine Fumarate [Toviaz] 8 mg PO DAILY 09/10/18 [History] RX: Lisinopril [Zestril] 20 mg PO DAILY 09/10/18 [History] RX: Omeprazole [PriLOSEC] 20 mg PO BID 09/10/18 [History] RX: Perphenazine 4 mg PO DAILY 09/10/18 [History] RX: Simvastatin [Zocor] 40 mg PO HS 09/10/18 [History] RX: Docusate [Colace] 100 mg PO PRN PRN 09/11/18 [History] RX: [place]-3 Fatty Acids [Fish Oil] 300 mg PO DAILY 09/11/18 [History] Allergies/Adverse Reactions: Allergy/AdvReac Type Severity Reaction Status Date / Time No Known Allergies Allergy Verified 09/10/18 15:25 Labs on day of discharge: Labs from last 24 hours 09/12/18 09/12/18 09/12/18 11:00 11:00 11:00 WBC 242.5 H* RBC 2.03 L Hgb 5.7 L* Hct 16.7 L MCV 82.3 L MCH 28.1 MCHC 34.1 RDW 17.4 H Plt Count 150 MPV 10.8 Seg Neutrophils % Band Neutrophils % Lymphocytes % Monocytes % Eosinophils % Basophils % Metamyelocytes % Myelocytes % Promyelocytes % Neutrophils # Lymphocytes # Monocytes # Eosinophils # Basophils # Nucleated RBCs/100 WBC Reactive Lymphocytes Smudge Cells Toxic Granulation Platelet Estimate Large Platelets Polychromasia Hypochromasia Macrocytosis Smear Path Review PT INR APTT Sodium Potassium Chloride Carbon Dioxide BUN Creatinine Est GFR ( Amer) Est GFR (Non-Af Amer) BUN/Creatinine Ratio Glucose Calculated Osmolality Lactic Acid 1.2 Uric Acid 12.8 H Calcium Phosphorus Magnesium Total Bilirubin Direct Bilirubin Indirect Bilirubin AST ALT Alkaline Phosphatase Lactate Dehydrogenase Creatine Kinase Troponin I Serum Total Protein Albumin Globulin Albumin/Globulin Ratio Stl C. diff Tox B Gene Blood Type Antibody Screen Crossmatch 09/12/18 09/12/18 09/12/18 09:46 09:41 09:30 WBC RBC Hgb Hct MCV MCH MCHC RDW Plt Count MPV Seg Neutrophils % Band Neutrophils % Lymphocytes % Monocytes % Eosinophils % Basophils % Metamyelocytes % Myelocytes % Promyelocytes % Neutrophils # Lymphocytes # Monocytes # Eosinophils # Basophils # Nucleated RBCs/100 WBC Reactive Lymphocytes Smudge Cells Toxic Granulation Platelet Estimate Large Platelets Polychromasia Hypochromasia Macrocytosis Smear Path Review PT 15.7 H INR 1.4 APTT Sodium Potassium Chloride Carbon Dioxide BUN Creatinine Est GFR ( Amer) Est GFR (Non-Af Amer) BUN/Creatinine Ratio Glucose Calculated Osmolality Lactic Acid Uric Acid Calcium Phosphorus Magnesium Total Bilirubin Direct Bilirubin Indirect Bilirubin AST ALT Alkaline Phosphatase Lactate Dehydrogenase Creatine Kinase 1162 H Troponin I Serum Total Protein Albumin Globulin Albumin/Globulin Ratio Stl C. diff Tox B Gene Blood Type O POSITIVE Antibody Screen NEGATIVE Crossmatch See Detail 09/12/18 09/12/18 09/12/18 09:27 04:37 04:37 WBC RBC Hgb Hct MCV MCH MCHC RDW Plt Count MPV Seg Neutrophils % Band Neutrophils % Lymphocytes % Monocytes % Eosinophils % Basophils % Metamyelocytes % Myelocytes % Promyelocytes % Neutrophils # Lymphocytes # Monocytes # Eosinophils # Basophils # Nucleated RBCs/100 WBC Reactive Lymphocytes Smudge Cells Toxic Granulation Platelet Estimate Large Platelets Polychromasia Hypochromasia Macrocytosis Smear Path Review PT INR APTT Sodium Potassium Chloride Carbon Dioxide BUN Creatinine Est GFR ( Amer) Est GFR (Non-Af Amer) BUN/Creatinine Ratio Glucose Calculated Osmolality Lactic Acid 1.3 1.5 Uric Acid Calcium Phosphorus Magnesium Total Bilirubin Direct Bilirubin Indirect Bilirubin AST ALT Alkaline Phosphatase Lactate Dehydrogenase 1003 H Creatine Kinase Troponin I Serum Total Protein Albumin Globulin Albumin/Globulin Ratio Stl C. diff Tox B Gene Blood Type Antibody Screen Crossmatch 09/12/18 09/12/18 09/12/18 04:37 04:37 03:48 WBC 283.0 H* RBC 2.06 L Hgb 5.8 L* Hct 17.5 L MCV 85.0 MCH 28.2 MCHC 33.1 RDW 17.3 H Plt Count 156 MPV 10.4 Seg Neutrophils % 40.0 Band Neutrophils % 6.0 H Lymphocytes % 12.0 Monocytes % 4.0 Eosinophils % 2.0 Basophils % 4.0 Metamyelocytes % 2.0 H Myelocytes % 24.0 H Promyelocytes % 6.0 H Neutrophils # 130.2 H Lymphocytes # 34.0 H Monocytes # 11.3 H Eosinophils # 5.7 H Basophils # 11.3 H Nucleated RBCs/100 WBC 4.9 H Reactive Lymphocytes Smudge Cells Present A Toxic Granulation Platelet Estimate Normal Large Platelets Present A Polychromasia 1+ A Hypochromasia Present A Macrocytosis Present A Smear Path Review See Below PT INR APTT Sodium 140 Potassium 4.6 Chloride 105 Carbon Dioxide 20 L BUN 49 H Creatinine 2.44 H Est GFR ( Amer) 24 L Est GFR (Non-Af Amer) 20 L BUN/Creatinine Ratio 20 Glucose 96 Calculated Osmolality 303 H Lactic Acid Uric Acid Calcium 7.4 L Phosphorus 6.3 H Magnesium 2.1 Total Bilirubin 0.3 Direct Bilirubin 0.1 Indirect Bilirubin 0.2 AST 64 H ALT 28 Alkaline Phosphatase 82 Lactate Dehydrogenase Creatine Kinase 1237 H Troponin I Serum Total Protein 5.5 L Albumin 3.5 Globulin 2.0 L Albumin/Globulin Ratio 1.8 Stl C. diff Tox B Gene Negative Blood Type Antibody Screen Crossmatch 09/11/18 09/11/18 09/11/18 23:11 22:47 22:46 WBC RBC Hgb Hct MCV MCH MCHC RDW Plt Count MPV Seg Neutrophils % Band Neutrophils % Lymphocytes % Monocytes % Eosinophils % Basophils % Metamyelocytes % Myelocytes % Promyelocytes % Neutrophils # Lymphocytes # Monocytes # Eosinophils # Basophils # Nucleated RBCs/100 WBC Reactive Lymphocytes Smudge Cells Toxic Granulation Platelet Estimate Large Platelets Polychromasia Hypochromasia Macrocytosis Smear Path Review PT INR APTT Sodium 139 Potassium 4.4 D Chloride 103 Carbon Dioxide 20 L BUN 46 H Creatinine 2.80 H Est GFR ( Amer) 21 L Est GFR (Non-Af Amer) 17 L BUN/Creatinine Ratio 16 Glucose 117 H Calculated Osmolality 301 H Lactic Acid 2.4 H Uric Acid 17.9 H Calcium 7.5 L Phosphorus 7.0 H Magnesium 2.2 Total Bilirubin Direct Bilirubin Indirect Bilirubin AST ALT Alkaline Phosphatase Lactate Dehydrogenase Creatine Kinase Troponin I 0.07 H* Serum Total Protein Albumin Globulin Albumin/Globulin Ratio Stl C. diff Tox B Gene Blood Type Antibody Screen Crossmatch 09/11/18 09/11/18 22:46 22:46 WBC 349.2 H* RBC 2.13 L Hgb 6.1 L Hct 18.2 L MCV 85.4 D MCH 28.6 MCHC 33.5 RDW 17.2 H Plt Count 166 MPV 10.6 Seg Neutrophils % 46.0 Band Neutrophils % 4.0 Lymphocytes % 20.0 Monocytes % Eosinophils % 4.0 Basophils % Metamyelocytes % 4.0 H Myelocytes % 10.0 H Promyelocytes % 12.0 H Neutrophils # 174.6 H Lymphocytes # 69.8 H Monocytes # Eosinophils # 14.0 H Basophils # Nucleated RBCs/100 WBC 5.5 H Reactive Lymphocytes Present A Smudge Cells Toxic Granulation Present A Platelet Estimate Large Platelets Polychromasia Hypochromasia Macrocytosis Smear Path Review PT 17.0 H INR 1.5 APTT 28.8 Sodium Potassium Chloride Carbon Dioxide BUN Creatinine Est GFR ( Amer) Est GFR (Non-Af Amer) BUN/Creatinine Ratio Glucose Calculated Osmolality Lactic Acid Uric Acid Calcium Phosphorus Magnesium Total Bilirubin Direct Bilirubin Indirect Bilirubin AST ALT Alkaline Phosphatase Lactate Dehydrogenase Creatine Kinase Troponin I Serum Total Protein Albumin Globulin Albumin/Globulin Ratio Stl C. diff Tox B Gene Blood Type Antibody Screen Crossmatch Preliminary micro results at discharge 09/11/18 23:07 Blood Culture - Preliminary Peripheral Venipuncture Culture is incubating and being continuously monitored for growth. Final report to follow. 09/11/18 23:11 Blood Culture - Preliminary Peripheral Venipuncture Culture is incubating and being continuously monito red for growth. Final report to follow. - Impressions ITS Impressions Abdomen/Pelvis CT 09/12/18 00:01 IMPRESSION: 1. Small hematoma in the subcutaneous fat overlying the lateral superior left gluteal musculature. There is significant infiltration of the subcutaneous fat extending from this site inferiorly into the left leg. No acute osseous abnormality is identified. 2. Hepatosplenomegaly. D/ / Tariq Tate MD / Tariq Taet MD Interpreting Provider: Tariq Tate MD Lower Extremity CT 09/12/18 00:01 IMPRESSION: No acute bony abnormalities. Large mildly heterogeneous high attenuation fluid collection, partially imaged, within the subcutaneous fat of the visualized left lower extremity within visualized thigh medially and into the anterior knee felt to be compatible with large hematoma. Proximal aspect excluded from field of view. No thickened rim identified. However, there are some punctate foci of gas noted within portions of the collection in the mid to distal thigh. Correlate clinically as to recent aspiration or other intervention. In the absence of this a secondarily infected hematoma with gas-forming organism cannot be excluded and consideration can be given to aspiration. D/ / 09/12/2018 07:11:51 Stanley Martinez MD / [email or web address] Interpreting Provider: Stanley Martinez MD Date of admission: 09/11/18 22:13 Primary care physician: PCP NONE Consults: 09/12/18 00:01 Consult to Pulmonology [CONS] Routine Consulting Provider: [facility] [place] Reason for Consult: was requiring levophed en route Call Completed: No 09/12/18 00:55 Consult to Oncology [CONS] Routine Consulting Provider: [facility] Reason for Consult: leukemia, concern for blast crisis versus tumor lisis syndrome Call Completed: Yes 09/12/18 01:28 Consult to Orthopedic Surgery [CONS] Routine Consulting Provider: [facility] Reason for Consult: LLE hematoma with gas Call Completed: Yes 09/12/18 11:36 Consult to Interventional Radiology [CONS] Stat Consulting Provider: Radiology Interventional Col[facility] Reason for Consult: CT GUIDED ABCESS DRAINAGE OF LLE Call Completed: Yes - Patient Status Disposition: Transfer Short-Term Hosp Condition: Critical Overall status at discharge: patient is not back to baseline - Discharge Instructions Follow Up With: NONE,PCP [Primary Care Provider] - - Hospital Course Hospital course: Ms. Nair is a 63 year old female - Time Spent with Patient Ms Love is a 63 year old female with past medical history including hyperlipidemia, hypertension, has MRDD , [facility], able to perform independent tasks and ambulate independently, under home health care givers, presenting as a transfer from [facility] to our ICU. Patient was recently diagnosed with leukemia and has had an appointment with oncology on September 18, not started treatment yet. The patient had a mechanical fall at home 2 days back . She tripped over her shoe hitting her left knee and left hip. At ED X-ray imaging was obtained that showed no acute fracture of the left knee or hip. She was sent home with App47 , but a home health aide with an altered mental status and decreased alertness. She did take a App47 teresa roximately 8 hours prior to this. As the day went on, the patient still had a decreased mental status from her baseline and was not following commands. EMS was called and the patient was sent to [facility]. Initial white blood count was greater than 440. Hemoglobin was 6.2. Hematocrit 19.2. MCV 94.6. Platelet count 233. Initial ABG showed pH 7.18, PCO2 14, PO2 57. Potassium was elevated at 6.1. BUN elevated at 42, creatinine 3.66. Patient has no history of chronic kidney disease. The patient was noted to have metabolic acidosis with hyperkalemia, acute renal failure, anemia. CT head was obtained and showed loss of coughlin/white matter differentiation within the superior cerebellum bilaterally. On arrival, the patient did have a low blood pressure and received 2 L of normal saline. She did receive an amp of sodium bicarbonate and was started on levophed. Blood cultures were obtained and the patient received vancomycin and Zosyn. The patient also received 1 unit PRBC as her hemoglobin had dropped from 10-6.1. She was sent to [place] for further management. Here in [place] , the patient was admitted in ICU, oncologist and orthopedic doctor has been consulted. Aggressive hydration, treatment with allopurinol , xydroxyurea and resburicase has been ordered. As before orthopedic surgery and oncology consultation, she has been planned to sent to [facility] . During my bedside visit @ 4 PM : her vitals were stable ,blood pressure 112/50, respiration 20, pulse 81, temperature 98.7 F MR saturation 93% on 2 L oxygen via nasal cannula. So the patient has been transferred to [facility] on 09/12/2018 @ 4:30 PM Physical Examination Vital Signs: Vital Signs, Last 4 Hours Temp Pulse Resp BP Pulse Ox 09/12/18 16:00 81 20 112/50 93 09/12/18 15:10 86 09/12/18 15:00 98.7 F 88 18 113/50 92 09/12/18 14:00 85 20 107/52 96 General appearance: alert, appears uncomfortable, other ( slightly confused , ill looking , pale) Eyes: nonicteric ENT: oropharynx dry Neck: supple Effort: mildly labored Cardiovascular: regular rate and rhythm Gastrointestinal: normoactive bowel sounds, soft, non-tender, non-distended Integumentary: cellulitis, other (SWelling in left lower extremity , bruises and echymoses present .) Extremities: edema Musculoskeletal: joint tenderness Gait: other (Pain and swelling and limited ROM in left Knee and HIp Joint ) pupils equal and round, motor strength normal and symmetric, other (Sleepy and slightly confused ) anxious <Doroteo Orellana W - Last Filed: 09/13/18 16:10> Orders not resulted at time of discharge: Pending orders 09/11/18 23:07 Culture,Blood [BC] Stat 09/12/18 04:37 BCR-ABL1 Major(p210) Quant Stat BCR-ABL1 Minor(p190) Quant Stat 09/12/18 09:46 Red Blood Cells [BBK] Stat Type and Screen [BBK] Stat Date of Encounter: 09/13/18 - Discharge Diagnosis (1) 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 Status: Acute (2) Knee contusion Status: Acute (3) Metabolic acidosis Status: Acute (4) Acute renal failure Status: Acute Qualifiers: Acute renal failure type: unspecified Qualified Code(s): N17.9 - Acute kidney failure, unspecified (5) CML (chronic myelocytic leukemia) Status: Acute (6) Tumor lysis syndrome Status: Acute (7) Sepsis Status: Acute Qualifiers: Sepsis type: sepsis due to unspecified organism Qualified Code(s): A41.9 - Sepsis, unspecified organism Labs on day of discharge: Labs from last 24 hours 09/12/18 09:46 Crossmatch See Detail Preliminary micro results at discharge 09/11/18 23:07 Blood Culture - Preliminary Peripheral Venipuncture Culture is incubating and being continuously monitored for growth. Final report to follow. 09/11/18 23:11 Blood Culture - Preliminary Peripheral Venipuncture Culture is incubating and being continuously monitored for growth. Final report to follow. - Impressions ITS Impressions Abdomen/Pelvis CT 09/12/18 00:01 IMPRESSION: 1. Small hematoma in the subcutaneous fat overlying the lateral superior left gluteal musculature. There is significant infiltration of the subcutaneous fat extending from this site inferiorly into the left leg. No acute osseous abnormality is identified. 2. Hepatosplenomegaly. D/ / Tariq Tate MD / Tariq Tate MD Interpreting Provider: Tariq Tate MD Lower Extremity CT 09/12/18 00:01 IMPRESSION: No acute bony abnormalities. Large mildly heterogeneous high attenuation fluid collection, partially imaged, within the subcutaneous fat of the visualized left lower extremity within visualized thigh medially and into the anterior knee felt to be compatible with large hematoma. Proximal aspect excluded from field of view. No thickened rim identified. However, there are some punctate foci of gas noted within portions of the collection in the mid to distal thigh. Correlate clinically as to recent aspiration or other intervention. In the absence of this a secondarily infected hematoma with gas-forming organism cannot be excluded and consideration can be given to aspiration. D/ / 09/12/2018 07:11:51 Stanley Martinez MD / [email or web address] Interpreting Provider: Stanley Martinez MD Date of admission: 09/11/18 22:13 Primary care physician: PCP NONE Consults: 09/12/18 00:01 Consult to Pulmonology [CONS] Routine Consulting Provider: [facility] Reason for Consult: was requiring levophed en route Call Completed: No 09/12/18 00:55 Consult to Oncology [CONS] Routine Consulting Provider: [facility] [place] Reason for Consult: leukemia, concern for blast crisis versus tumor lisis syndrome Call Completed: Yes 09/12/18 01:28 Consult to Orthopedic Surgery [CONS] Routine Consulting Provider: [facility] Reason for Consult: LLE hematoma with gas Call Completed: Yes 09/12/18 11:36 Consult to Interventional Radiology [CONS] Stat Consulting Provider: Radiology Interventional Cols Reason for Consult: CT GUIDED ABCESS DRAINAGE OF LLE Call Completed: Yes - Hospital Course Hospital course: Ms. Nair is a 63 year old female - Time Spent with Patient Total time spent providing and/or coordinating discharge services: - Attending Attestation I examined this patient and my medical decision-making was reviewed with the Re sident Physician. I agree with the documented findings, disposition and treatment plan as described except to the extent set forth below. We independently had [id number] contact with the patient 63-year-old woman presented after traumatic fall with altered mental status concern for CML with blast transformation tumor lysis syndrome sepsis and traumatic hematoma given complexity of case decision to transfer to [facility] for evaluation of possible blast crisis and chemotherapeutic options was evaluated by both oncology and orthopedics at this facility was transferred in stable condition
== END 2018-09-12 16:35 | disposition short-term general hospital (02) | DRG 871 ==
LOC: ICNU 22:13
PROVIDERS: ADMIT Internal Medicine; ATTEND Internal Medicine

== ENCOUNTER 2019-03-28 16:21 | Inpatient (IN) ==
[2019-03-28] MEDS ORDERED: Ibuprofen 600 MG TABLET PO PRN (18:59)
[2019-03-28] MEDS ORDERED: 0.9 % Sodium Chloride 1,000 ML IVC SCH (19:00)
[2019-03-28] MEDS ORDERED: Acetaminophen 325 MG TABLET PO PRN (19:00)
[2019-03-28] MEDS ORDERED: Ondansetron 4 MG/2 ML VIAL IVP PRN (19:45)
[2019-03-28] MEDS ORDERED: Naloxone 0.4 MG/ML INJ IVP PRN (19:45)
[2019-03-28] MEDS: 0.9 % Sodium Chloride 1,000 ML IVC SCH (20:31)
[2019-03-28] MEDS ORDERED: Acetaminophen IV 1,000 MG/100 ML INFUS..BTL IVPB ONE (23:44)
[2019-03-29] MEDS: 0.9 % Sodium Chloride 1,000 ML IVC SCH (03:20)
[2019-03-29 04:28] LABS: Red Cell Distribution Width 15.2 % (11.5-14.5)
[2019-03-29 04:29] LABS: Hematocrit 24.1 % (35.3-44.9); Hemoglobin 7.6 g/dL (11.5-15.4); Lymphocytes # 1.2 K/mcL (0.6-4.6); Lymphocytes % 72.1 %; Mean Corpuscular HGB Conc 31.5 g/dL (31.6-35.5); Mean Corpuscular Hemoglobin 25.8 pg (28.0-33.3); Mean Corpuscular Volume 81.7 fL (83.0-100.0); Mean Platelet Volume 9.5 fL (9.4-12.4); Monocytes # 0.4 K/mcL (0.0-1.3); Monocytes % 22.7 %; Neutrophils # 0.1 K/mcL (1.6-8.9); Red Blood Count 2.95 M/mcL (3.82-4.97); Segmented Neutrophils % 5.2 %; White Blood Count 1.7 K/mcL (4.3-11.1)
[2019-03-29 04:30] LABS: Platelet Count 74 K/mcL (140-400)
[2019-03-29 04:39] LABS: INR 1.2; Prothrombin Time 13.2 Seconds (9.4-12.1)
[2019-03-29 04:42] LABS: Activated Partial Thrombo Time 36.8 Seconds (26.0-36.0)
[2019-03-29 04:47] LABS: Chol/HDL Ratio 11.8 (0-4.9)
[2019-03-29 04:49] LABS: Albumin/Globulin Ratio 1.1 (1.1-2.2); Bilirubin,Total 0.3 mg/dL (0.3-1.0); Calcium 7.4 mg/dL (8.6-10.3); Globulin 2.7 g/dL (2.4-3.5); Magnesium 1.7 mg/dL (1.6-2.6); Phosphorous 3.4 mg/dL (2.7-4.5); Platelet Estimate Decreased (Normal); Potassium 3.9 mEq/L (3.5-5.1); Reactive Lymphocytes Present (Not Present); Total Protein 5.7 g/dL (6.4-8.9)
[2019-03-29] MEDS: Acetaminophen IV 1,000 MG/100 ML INFUS..BTL IVPB PRN ×2 (09:12→21:28)
[2019-03-29] MEDS ORDERED: 0.9 % Sodium Chloride 1,000 ML IVC SCH (11:15)
[2019-03-29] MEDS ORDERED: Furosemide 20 MG/2 ML VIAL IVP ONE (11:43)
[2019-03-29] MEDS ORDERED: Piperacillin/Tazobactam 3.375 GM in 0.9 % Sodium Chloride Mini Bag 100 ML IVPB SCH ×2 (12:00)
[2019-03-29 13:17] LABS: Bilirubin,Urine Negative (Negative); Blood,Urine Negative (Negative); Clarity,Urine Clear (Clear); Color,Urine Yellow (Yellow); Glucose,Urine (UA) Normal (Normal); Ketones,Urine Negative (Negative); Leukocyte Esterase,Urine Negative (Negative); Nitrite,Urine Negative (Negative); Protein,Urine 100 mg/dL (Neg-Trace); Specific Gravity,Urine 1.024 (1.010-1.025); Urobilinogen,Urine Normal (Normal)
[2019-03-29 13:20] LABS: Hyaline Casts,Urine None Seen per lpf (None-Few); Squamous Epithelial Cell,Urine Many per lpf (None-Few)
[2019-03-29 15:51] LABS: Bacteria,Urine Many per hpf (None-Few)
[2019-03-29 15:52] LABS: Granular Casts,Urine Few per lpf (None Seen)
[2019-03-29] MEDS: Piperacillin/Tazobactam 3.375 GM in 0.9 % Sodium Chloride Mini Bag 100 ML IVPB SCH (22:36)
[2019-03-30] MEDS: Piperacillin/Tazobactam 3.375 GM in 0.9 % Sodium Chloride Mini Bag 100 ML IVPB SCH ×3 (04:57→20:24)
[2019-03-30] MEDS ORDERED: Sennosides/Docusate Sodium TABLET PO PRN (07:39)
[2019-03-30] MEDS ORDERED: *HR* LORazepam 0.5 MG TABLET PO PRN (07:39)
[2019-03-30] MEDS ORDERED: Menthol 9.1 MG LOZENGE PO PRN (07:39)
[2019-03-30] MEDS: Acetaminophen IV 1,000 MG/100 ML INFUS..BTL IVPB PRN (09:39)
[2019-03-30] MEDS: Divalproex Sodium 125 MG CAPSULE PO SCH ×2 (09:43→20:26)
[2019-03-30] MEDS: Loratadine 10 MG TABLET PO SCH (09:44)
[2019-03-30] MEDS: *HR* LORazepam 0.5 MG TABLET PO SCH (09:44)
[2019-03-30] MEDS: Perphenazine 2 MG TABLET PO SCH (09:46)
[2019-03-30] MEDS: NILOTINIB HCL 200 MG PO SCH (09:46)
[2019-03-30 12:02] LABS: Hematocrit 22.8 % (35.3-44.9); Hemoglobin 7.2 g/dL (11.5-15.4); Mean Corpuscular HGB Conc 31.6 g/dL (31.6-35.5); Mean Corpuscular Hemoglobin 25.4 pg (28.0-33.3); Mean Corpuscular Volume 80.6 fL (83.0-100.0); Platelet Count 107 K/mcL (140-400); Red Blood Count 2.83 M/mcL (3.82-4.97); Red Cell Distribution Width 15.3 % (11.5-14.5); White Blood Count 2.5 K/mcL (4.3-11.1)
[2019-03-30 12:08] LABS: BUN/Creatinine Ratio 20 (6-26); Blood Urea Nitrogen 18 mg/dL (8-23); Calcium 8.2 mg/dL (8.6-10.3); Carbon Dioxide 19 mEq/L (23-29); Chloride 107 mEq/L (98-107); Glucose 99 mg/dL (70-105); Magnesium 1.7 mg/dL (1.6-2.6); Osmolality,Calculated 286 (280-300); Phosphorous 2.9 mg/dL (2.7-4.5); Potassium 3.7 mEq/L (3.5-5.1); Sodium 137 mEq/L (136-145); eGFR For African Americans > 60 (> 60); eGFR For Non-African Americans > 60 (> 60)
[2019-03-30 12:22] LABS: Lymphocytes # 1.7 K/mcL (0.6-4.6); Monocytes # 0.2 K/mcL (0.0-1.3); Neutrophils # 0.7 K/mcL (1.6-8.9); Platelet Estimate Slight Decrease (Normal)
[2019-03-30 19:26] LABS: Adenovirus Not Detected (Not Detect); Bordetella Pertussis Not Detected (Not Detect); Chlamydophila pneumoniae Not Detected (Not Detect); Coronavirus 229E Not Detected (Not Detect); Coronavirus HKU1 Not Detected (Not Detect); Coronavirus NL63 Not Detected (Not Detect); Coronavirus OC43 Not Detected (Not Detect); Human Metapneumovirus Not Detected (Not Detect); Human Rhinovirus/Enterovirus Not Detected (Not Detect); Influenza A Subtype 2009 H1 Not Detected (Not Detect); Influenza A Untypeable Not Detected (Not Detect); Influenza B Not Detected (Not Detect); Mycoplasma pneumoniae Not Detected (Not Detect); Parainfluenza Virus 1 Not Detected (Not Detect); Parainfluenza Virus 2 Not Detected (Not Detect); Parainfluenza Virus 3 Not Detected (Not Detect); Parainfluenza Virus 4 Not Detected (Not Detect); Respiratory Syncytial Virus Not Detected (Not Detect)
[2019-03-31 03:25] LABS: Basophils % 0.3 %; Eosinophils % 0.6 %; Hemoglobin 7.5 g/dL (11.5-15.4); Immature Granulocytes % 0.9 % (0-4); Lymphocytes # 1.8 K/mcL (0.6-4.6); Lymphocytes % 50.7 %; Mean Corpuscular HGB Conc 31.3 g/dL (31.6-35.5); Mean Corpuscular Hemoglobin 25.1 pg (28.0-33.3); Mean Corpuscular Volume 80.3 fL (83.0-100.0); Mean Platelet Volume 9.6 fL (9.4-12.4); Monocytes # 0.5 K/mcL (0.0-1.3); Monocytes % 14.4 %; Neutrophils # 1.2 K/mcL (1.6-8.9); Platelet Count 138 K/mcL (140-400); Red Blood Count 2.99 M/mcL (3.82-4.97); Red Cell Distribution Width 15.7 % (11.5-14.5); Segmented Neutrophils % 33.1 %; White Blood Count 3.5 K/mcL (4.3-11.1)
[2019-03-31 03:41] LABS: Platelet Estimate Decreased (Normal)
[2019-03-31 03:46] LABS: BUN/Creatinine Ratio 19 (6-26); Blood Urea Nitrogen 14 mg/dL (8-23); Calcium 8.3 mg/dL (8.6-10.3); Carbon Dioxide 19 mEq/L (23-29); Chloride 107 mEq/L (98-107); Glucose 97 mg/dL (70-105); Magnesium 1.6 mg/dL (1.6-2.6); Osmolality,Calculated 284 (280-300); Phosphorous 2.9 mg/dL (2.7-4.5); Potassium 3.7 mEq/L (3.5-5.1); Sodium 137 mEq/L (136-145); eGFR For African Americans > 60 (> 60); eGFR For Non-African Americans > 60 (> 60)
[2019-03-31] MEDS: Piperacillin/Tazobactam 3.375 GM in 0.9 % Sodium Chloride Mini Bag 100 ML IVPB SCH ×3 (04:30→20:56)
[2019-03-31] MEDS: NILOTINIB HCL 200 MG PO SCH (08:19)
[2019-03-31] MEDS: *HR* LORazepam 0.5 MG TABLET PO SCH (08:19)
[2019-03-31] MEDS: Loratadine 10 MG TABLET PO SCH (08:19)
[2019-03-31] MEDS: Perphenazine 2 MG TABLET PO SCH (08:19)
[2019-03-31] MEDS: Divalproex Sodium 125 MG CAPSULE PO SCH ×2 (08:19→20:58)
[2019-04-01 02:30] LABS: Hematocrit 24.5 % (35.3-44.9); Hemoglobin 7.8 g/dL (11.5-15.4); Lymphocytes # 2.3 K/mcL (0.6-4.6); Mean Corpuscular HGB Conc 31.8 g/dL (31.6-35.5); Mean Corpuscular Hemoglobin 25.4 pg (28.0-33.3); Mean Corpuscular Volume 79.8 fL (83.0-100.0); Mean Platelet Volume 9.3 fL (9.4-12.4); Platelet Count 152 K/mcL (140-400); Red Blood Count 3.07 M/mcL (3.82-4.97); Red Cell Distribution Width 15.5 % (11.5-14.5)
[2019-04-01 02:45] LABS: BUN/Creatinine Ratio 19 (6-26); Blood Urea Nitrogen 13 mg/dL (8-23); Calcium 8.4 mg/dL (8.6-10.3); Carbon Dioxide 20 mEq/L (23-29); Chloride 109 mEq/L (98-107); Glucose 93 mg/dL (70-105); Magnesium 1.5 mg/dL (1.6-2.6); Osmolality,Calculated 288 (280-300); Phosphorous 3.8 mg/dL (2.7-4.5); Potassium 3.9 mEq/L (3.5-5.1); Sodium 139 mEq/L (136-145); eGFR For African Americans > 60 (> 60); eGFR For Non-African Americans > 60 (> 60)
[2019-04-01 03:03] LABS: Anisocytosis 1+ (Not Present); Monocytes # 0.3 K/mcL (0.0-1.3); Neutrophils # 2.3 K/mcL (1.6-8.9)
[2019-04-01 03:04] LABS: Microcytosis Present (Not Present); Ovalocytes 1+ (Not Present); Platelet Estimate Normal (Normal)
[2019-04-01] MEDS: Piperacillin/Tazobactam 3.375 GM in 0.9 % Sodium Chloride Mini Bag 100 ML IVPB SCH ×3 (05:09→20:00)
[2019-04-01] MEDS: *HR* LORazepam 0.5 MG TABLET PO SCH (07:58)
[2019-04-01] MEDS: Loratadine 10 MG TABLET PO SCH (07:58)
[2019-04-01] MEDS: Divalproex Sodium 125 MG CAPSULE PO SCH ×2 (07:58→20:00)
[2019-04-01] MEDS: Perphenazine 2 MG TABLET PO SCH (07:58)
[2019-04-01] MEDS: NILOTINIB HCL 200 MG PO SCH (08:04)
[2019-04-01] MEDS ORDERED: Aminoglycoside Consult 1 EACH MC ONE (18:54)
[2019-04-02 02:19] LABS: Basophils % 0.3 %; Eosinophils # 0.1 K/mcL (0.0-0.6); Eosinophils % 0.8 %; Hematocrit 26.4 % (35.3-44.9); Hemoglobin 8.5 g/dL (11.5-15.4); Immature Granulocytes % 0.7 % (0-4); Lymphocytes # 2.4 K/mcL (0.6-4.6); Lymphocytes % 39.2 %; Mean Corpuscular HGB Conc 32.2 g/dL (31.6-35.5); Mean Corpuscular Hemoglobin 25.2 pg (28.0-33.3); Mean Corpuscular Volume 78.3 fL (83.0-100.0); Mean Platelet Volume 9.5 fL (9.4-12.4); Monocytes # 0.6 K/mcL (0.0-1.3); Monocytes % 9.5 %; Platelet Count 166 K/mcL (140-400); Red Blood Count 3.37 M/mcL (3.82-4.97); Red Cell Distribution Width 15.3 % (11.5-14.5); Segmented Neutrophils % 49.5 %; White Blood Count 6.1 K/mcL (4.3-11.1)
[2019-04-02 02:37] LABS: BUN/Creatinine Ratio 17 (6-26); Blood Urea Nitrogen 10 mg/dL (8-23); Calcium 8.4 mg/dL (8.6-10.3); Carbon Dioxide 21 mEq/L (23-29); Chloride 105 mEq/L (98-107); Glucose 90 mg/dL (70-105); Magnesium 1.5 mg/dL (1.6-2.6); Osmolality,Calculated 285 (280-300); Phosphorous 3.8 mg/dL (2.7-4.5); Potassium 3.7 mEq/L (3.5-5.1); Sodium 138 mEq/L (136-145); eGFR For African Americans > 60 (> 60); eGFR For Non-African Americans > 60 (> 60)
[2019-04-02] MEDS: Piperacillin/Tazobactam 3.375 GM in 0.9 % Sodium Chloride Mini Bag 100 ML IVPB SCH (03:05)
[2019-04-02 07:18] VITALS: BP 143/90
[2019-04-02] MEDS ORDERED: Ergocalciferol (VIT D2) 50,000 UNIT (1.25MG) CAP PO SCH (09:00)
[2019-04-02] MEDS ORDERED: Lactobacillus 1 EACH CAP.SPRINK PO SCH (09:00)
[2019-04-02] MEDS ORDERED: Lidocaine Viscous Oral Soln 15 ML SOLUTION MM SCH (09:34)
[2019-04-02] MEDS: Loratadine 10 MG TABLET PO SCH (15:46)
[2019-04-02] MEDS: *HR* LORazepam 0.5 MG TABLET PO SCH (15:46)
[2019-04-02] MEDS: Divalproex Sodium 125 MG CAPSULE PO SCH (15:46)
[2019-04-02] MEDS: Perphenazine 2 MG TABLET PO SCH (15:47)
[2019-04-02] MEDS ORDERED: Doxycycline 100 MG CAPSULE PO SCH (21:00)
== END 2019-04-02 18:55 | disposition home or self-care (01) | DRG 871 ==
LOC: 2NENU
PROVIDERS: ADMIT Internal Medicine; ATTEND Internal Medicine

== ENCOUNTER 2021-07-20 02:45 | Inpatient (IN) ==
[2021-07-20] MEDS ORDERED: Ondansetron 4 MG/2 ML VIAL IVP PRN (12:25)
[2021-07-20] MEDS ORDERED: Naloxone 0.4 MG/ML INJ IVP PRN (12:25)
[2021-07-20] MEDS ORDERED: Sennosides/Docusate Sodium TABLET PO PRN (12:26)
[2021-07-20] MEDS ORDERED: Perflutren Lipid Microsphere 1.3 ML in 0.9 % Sodium Chloride 8.7 ML IVP PRN (12:31)
[2021-07-20] MEDS: Aspirin 81 MG TAB.CHEW PO SCH (12:33)
[2021-07-20 14:55] LABS: Basophils % 0.3 %; Eosinophils # 0.1 K/mcL (0.0-0.6); Eosinophils % 0.8 %; Hematocrit 35.3 % (35.3-44.9); Hemoglobin 11.4 g/dL (11.5-15.4); Immature Granulocytes % 1.3 % (0-4); Lymphocytes # 3.8 K/mcL (0.6-4.6); Lymphocytes % 49.6 %; Mean Corpuscular HGB Conc 32.3 g/dL (31.6-35.5); Mean Corpuscular Hemoglobin 27.9 pg (28.0-33.3); Mean Corpuscular Volume 86.3 fL (83.0-100.0); Mean Platelet Volume 9.4 fL (9.4-12.4); Monocytes # 0.2 K/mcL (0.0-1.3); Neutrophils # 3.5 K/mcL (1.6-8.9); Platelet Count 147 K/mcL (140-400); Red Blood Count 4.09 M/mcL (3.82-4.97); Red Cell Distribution Width 15.4 % (11.5-14.5); White Blood Count 7.6 K/mcL (4.3-11.1)
[2021-07-20 15:22] LABS: BUN/Creatinine Ratio 24 (6-26); Blood Urea Nitrogen 20 mg/dL (8-23); Calcium 9.2 mg/dL (8.6-10.3); Carbon Dioxide 22 mEq/L (23-29); Chloride 102 mEq/L (98-107); Glucose 89 mg/dL (70-105); Magnesium 2.5 mg/dL (1.6-2.6); Osmolality,Calculated 290 (280-300); Potassium 3.8 mEq/L (3.5-5.1); Sodium 139 mEq/L (136-145); eGFR For African Americans > 60 (> 60); eGFR For Non-African Americans > 60 (> 60)
[2021-07-21 02:31] LABS: Basophils % 0.1 %; Eosinophils # 0.1 K/mcL (0.0-0.6); Eosinophils % 0.7 %; Hematocrit 33.2 % (35.3-44.9); Hemoglobin 10.6 g/dL (11.5-15.4); Immature Granulocytes % 1.4 % (0-4); Lymphocytes # 3.3 K/mcL (0.6-4.6); Lymphocytes % 43.4 %; Mean Corpuscular HGB Conc 31.9 g/dL (31.6-35.5); Mean Corpuscular Hemoglobin 27.5 pg (28.0-33.3); Mean Corpuscular Volume 86.2 fL (83.0-100.0); Monocytes # 0.5 K/mcL (0.0-1.3); Monocytes % 6.1 %; Neutrophils # 3.7 K/mcL (1.6-8.9); Platelet Count 133 K/mcL (140-400); Red Blood Count 3.85 M/mcL (3.82-4.97); Red Cell Distribution Width 15.3 % (11.5-14.5); Segmented Neutrophils % 48.3 %; White Blood Count 7.6 K/mcL (4.3-11.1)
[2021-07-21 02:38] LABS: INR 1.4; Prothrombin Time 15.6 Seconds (9.4-12.1)
[2021-07-21 03:11] LABS: Troponin I < 0.03 ng/mL (< 0.04)
[2021-07-21 04:16] LABS: BUN/Creatinine Ratio 24 (6-26); Blood Urea Nitrogen 18 mg/dL (8-23); Calcium 9.1 mg/dL (8.6-10.3); Carbon Dioxide 24 mEq/L (23-29); Chloride 102 mEq/L (98-107); Glucose 106 mg/dL (70-105); Magnesium 2.3 mg/dL (1.6-2.6); Osmolality,Calculated 286 (280-300); Potassium 4.3 mEq/L (3.5-5.1); Sodium 137 mEq/L (136-145); eGFR For African Americans > 60 (> 60); eGFR For Non-African Americans > 60 (> 60)
[2021-07-21 04:18] LABS: Alanine Aminotransferase 5 Units/L (7-52); Albumin/Globulin Ratio 1.3 (1.1-2.2); Aspartate Amino Transferase 8 Units/L (13-39); BUN/Creatinine Ratio 24 (6-26); Bilirubin,Total 0.3 mg/dL (0.3-1.0); Blood Urea Nitrogen 18 mg/dL (8-23); Calcium 9.2 mg/dL (8.6-10.3); Carbon Dioxide 24 mEq/L (23-29); Chloride 102 mEq/L (98-107); Chol/HDL Ratio 11.3 (0-4.9); Cholesterol 260 mg/dL (< 200); Globulin 3.2 g/dL (2.4-3.5); Glucose 103 mg/dL (70-105); HDL Cholesterol 23 mg/dL (40-59); Osmolality,Calculated 286 (280-300); Potassium 4.3 mEq/L (3.5-5.1); Sodium 137 mEq/L (136-145); Total Protein 7.2 g/dL (6.4-8.9); Triglycerides 596 mg/dL (< 150); eGFR For African Americans > 60 (> 60); eGFR For Non-African Americans > 60 (> 60)
[2021-07-21 05:21] LABS: LDL Cholesterol,Direct 129 mg/dL (75-193)
[2021-07-21 06:21] LABS: Alkaline Phosphatase 62 Units/L (34-104)
[2021-07-21] MEDS: Magnesium Oxide 400 MG TABLET PO SCH (08:56)
[2021-07-21] MEDS: *HR* LORazepam 0.5 MG TABLET PO SCH ×2 (08:56→22:34)
[2021-07-21] MEDS: Furosemide 20 MG TABLET PO SCH (08:56)
[2021-07-21] MEDS: lisinopriL 5 MG TABLET PO SCH (08:56)
[2021-07-21] MEDS: Perphenazine 2 MG TABLET PO SCH (08:56)
[2021-07-21] MEDS: Divalproex Sodium 125 MG Sprinkle Capsule (DR) PO SCH ×2 (08:56→22:34)
[2021-07-21] MEDS: Aspirin 81 MG TAB.CHEW PO SCH (08:56)
[2021-07-21] MEDS: NILOTINIB HCL 200 MG PO SCH ×2 (08:57→22:34)
[2021-07-21] MEDS ORDERED: Perphenazine 2 MG TABLET PO SCH (09:00)
[2021-07-21 09:13] LABS: Estimated Average Glucose 123 mg/dl; Hemoglobin A1C 5.9 %
[2021-07-22 03:36] LABS: Basophils % 0.2 %; Eosinophils % 0.2 %; Hematocrit 34.4 % (35.3-44.9); Hemoglobin 10.6 g/dL (11.5-15.4); Immature Granulocytes % 1.4 % (0-4); Lymphocytes # 3.4 K/mcL (0.6-4.6); Lymphocytes % 38.4 %; Mean Corpuscular HGB Conc 30.8 g/dL (31.6-35.5); Mean Corpuscular Hemoglobin 26.7 pg (28.0-33.3); Mean Corpuscular Volume 86.6 fL (83.0-100.0); Mean Platelet Volume 9.4 fL (9.4-12.4); Monocytes # 0.4 K/mcL (0.0-1.3); Monocytes % 4.5 %; Neutrophils # 4.9 K/mcL (1.6-8.9); Platelet Count 154 K/mcL (140-400); Red Blood Count 3.97 M/mcL (3.82-4.97); Red Cell Distribution Width 15.2 % (11.5-14.5); Segmented Neutrophils % 55.3 %; White Blood Count 8.8 K/mcL (4.3-11.1)
[2021-07-22 03:44] LABS: BUN/Creatinine Ratio 26 (6-26); Blood Urea Nitrogen 19 mg/dL (8-23); Calcium 9.3 mg/dL (8.6-10.3); Carbon Dioxide 23 mEq/L (23-29); Chloride 103 mEq/L (98-107); Glucose 101 mg/dL (70-105); Osmolality,Calculated 282 (280-300); Potassium 4.2 mEq/L (3.5-5.1); Sodium 135 mEq/L (136-145); eGFR For African Americans > 60 (> 60); eGFR For Non-African Americans > 60 (> 60)
[2021-07-22] MEDS: lisinopriL 5 MG TABLET PO SCH (08:38)
[2021-07-22] MEDS: Furosemide 20 MG TABLET PO SCH (08:38)
[2021-07-22] MEDS: Aspirin 81 MG TAB.CHEW PO SCH (08:38)
[2021-07-22] MEDS: Magnesium Oxide 400 MG TABLET PO SCH (08:38)
[2021-07-22] MEDS: Divalproex Sodium 125 MG Sprinkle Capsule (DR) PO SCH ×2 (08:38→20:31)
[2021-07-22] MEDS: *HR* LORazepam 0.5 MG TABLET PO SCH ×2 (08:38→20:31)
[2021-07-22] MEDS: Perphenazine 2 MG TABLET PO SCH (08:38)
[2021-07-22] MEDS: NILOTINIB HCL 200 MG PO SCH ×2 (08:39→20:31)
[2021-07-22 20:30] VITALS: TEMP 98.4
[2021-07-23 07:47] VITALS: BP 158/91; PULSE 93; O2SAT 95
[2021-07-23] MEDS: Aspirin 81 MG TAB.CHEW PO SCH (09:39)
[2021-07-23] MEDS: *HR* LORazepam 0.5 MG TABLET PO SCH (09:40)
[2021-07-23] MEDS: Divalproex Sodium 125 MG Sprinkle Capsule (DR) PO SCH (09:40)
[2021-07-23] MEDS: Magnesium Oxide 400 MG TABLET PO SCH (09:40)
[2021-07-23] MEDS: Furosemide 20 MG TABLET PO SCH (09:40)
[2021-07-23] MEDS: NILOTINIB HCL 200 MG PO SCH (09:40)
[2021-07-23] MEDS: Perphenazine 2 MG TABLET PO SCH (09:40)
[2021-07-23] MEDS: lisinopriL 5 MG TABLET PO SCH (09:40)
== END 2021-07-23 16:27 | DRG 64 ==
LOC: 3BNU → SUATTDRO 14:47
PROVIDERS: ADMIT Internal Medicine; ATTEND Internal Medicine

== ENCOUNTER 2021-07-24 17:27 | Inpatient (IN) ==
[2021-07-24] MEDS ORDERED: Ondansetron 4 MG/2 ML VIAL IVP PRN (20:07)
[2021-07-24] MEDS ORDERED: Naloxone 0.4 MG/ML INJ IVP PRN (20:07)
[2021-07-24] MEDS ORDERED: Acetaminophen IV 1,000 MG/100 ML BAG IVPB ONE (20:11)
[2021-07-24] MEDS ORDERED: 0.9 % Sodium Chloride 1,000 ML IVC SCH (20:15)
[2021-07-24] MEDS ORDERED: Dextrose Gel 15 GM/37.5 ML TUBE PO PRN ×2 (20:43)
[2021-07-24] MEDS ORDERED: *HR* Dextrose 50 % in Water (Syg) 50 ML SYRINGE IVP PRN (20:43)
[2021-07-24] MEDS ORDERED: D5% in Water 1,000 ML IVC PRN (20:43)
[2021-07-24 21:13] LABS: Basophils % 0.2 %; Hematocrit 37.3 % (35.3-44.9); Hemoglobin 11.5 g/dL (11.5-15.4); Lymphocytes # 3.6 K/mcL (0.6-4.6); Lymphocytes % 40.6 %; Mean Corpuscular HGB Conc 30.8 g/dL (31.6-35.5); Mean Corpuscular Hemoglobin 27.3 pg (28.0-33.3); Mean Corpuscular Volume 88.4 fL (83.0-100.0); Mean Platelet Volume 9.3 fL (9.4-12.4); Monocytes # 0.2 K/mcL (0.0-1.3); Monocytes % 1.9 %; Platelet Count 193 K/mcL (140-400); Red Blood Count 4.22 M/mcL (3.82-4.97); Red Cell Distribution Width 15.5 % (11.5-14.5); Segmented Neutrophils % 56.3 %; White Blood Count 8.8 K/mcL (4.3-11.1)
[2021-07-24 21:21] LABS: INR 1.9; Prothrombin Time 21.2 Seconds (9.4-12.1)
[2021-07-24 21:24] LABS: Activated Partial Thrombo Time 52.3 Seconds (26.0-36.0)
[2021-07-24 21:33] LABS: Alanine Aminotransferase 20 Units/L (7-52); Albumin 4.1 g/dL (3.5-5.7); Alkaline Phosphatase 58 Units/L (34-104); Aspartate Amino Transferase 33 Units/L (13-39); BUN/Creatinine Ratio 35 (6-26); Bilirubin,Total 0.3 mg/dL (0.3-1.0); Blood Urea Nitrogen 37 mg/dL (8-23); Calcium 9.5 mg/dL (8.6-10.3); Carbon Dioxide 22 mEq/L (23-29); Chloride 107 mEq/L (98-107); Cholesterol 216 mg/dL (< 200); Glucose 107 mg/dL (70-105); HDL Cholesterol 24 mg/dL (40-59); Magnesium 2.5 mg/dL (1.6-2.6); Osmolality,Calculated 307 (280-300); Potassium 4.1 mEq/L (3.5-5.1); Sodium 144 mEq/L (136-145); Total Protein 8.1 g/dL (6.4-8.9); Triglycerides 491 mg/dL (< 150); eGFR For African Americans > 60 (> 60); eGFR For Non-African Americans 51 (> 60)
[2021-07-25] MEDS: Insulin LISPRO 300 UNITS/3 ML VIAL SUBQ SCH ×4 (00:41→17:52)
[2021-07-25] MEDS ORDERED: Acetaminophen IV 1,000 MG/100 ML BAG IVPB ONE ×2 (06:58→19:13)
[2021-07-25 09:22] LABS: Basophils % 0.1 %; Eosinophils % 0.3 %; Hematocrit 34.5 % (35.3-44.9); Hemoglobin 10.9 g/dL (11.5-15.4); Immature Granulocytes % 0.8 % (0-4); Lymphocytes % 38.5 %; Mean Corpuscular HGB Conc 31.6 g/dL (31.6-35.5); Mean Corpuscular Volume 88.7 fL (83.0-100.0); Mean Platelet Volume 9.2 fL (9.4-12.4); Monocytes # 0.2 K/mcL (0.0-1.3); Monocytes % 2.4 %; Neutrophils # 4.3 K/mcL (1.6-8.9); Platelet Count 188 K/mcL (140-400); Red Blood Count 3.89 M/mcL (3.82-4.97); Red Cell Distribution Width 15.6 % (11.5-14.5); Segmented Neutrophils % 57.9 %; White Blood Count 7.4 K/mcL (4.3-11.1)
[2021-07-25 09:26] LABS: Lymphocytes # 2.9 K/mcL (0.6-4.6); Platelet Estimate Normal (Normal); Reactive Lymphocytes Present (Not Present)
[2021-07-25 09:38] LABS: Calcium 9.2 mg/dL (8.6-10.3); Potassium 3.9 mEq/L (3.5-5.1)
[2021-07-25] MEDS: Piperacillin/Tazobactam 3.375 GM in 0.9 % Sodium Chloride Mini Bag 100 ML IVPB SCH ×2 (12:03→20:03)
[2021-07-25] MEDS: 0.9 % Sodium Chloride 1,000 ML IVC SCH ×2 (12:06→20:04)
[2021-07-25] MEDS: Doxycycline 100 MG in 0.9 % Sodium Chloride Mini Bag 100 ML IVPB SCH (17:50)
[2021-07-25 20:15] LABS: Bilirubin,Urine Negative (Negative); Blood,Urine Trace (Negative); Clarity,Urine Clear (Clear); Color,Urine Yellow (Yellow); Glucose,Urine (UA) Normal (Normal); Ketones,Urine Negative (Negative); Leukocyte Esterase,Urine Small (Negative); Nitrite,Urine Positive (Negative); Protein,Urine 200 mg/dL (Neg-Trace); RBC,Urine 0-3 per hpf (0-3); Specific Gravity,Urine > 1.030 (1.010-1.025); Squamous Epithelial Cell,Urine Few per hpf (None-Few); Urobilinogen,Urine Normal (Normal); WBC,Urine 15-30 per hpf (0-3)
[2021-07-25] MEDS: *HR* LORazepam 0.5 MG TABLET PO SCH (20:38)
[2021-07-25] MEDS: Divalproex Sodium 125 MG Sprinkle Capsule (DR) PO SCH (20:38)
[2021-07-25] MEDS: NILOTINIB HCL 200 MG PO SCH (20:38)
[2021-07-25] MEDS ORDERED: 0.9 % Sodium Chloride 1,000 ML IV ONE (23:05)
[2021-07-26] MEDS: Insulin LISPRO 300 UNITS/3 ML VIAL SUBQ SCH ×4 (00:57→17:17)
[2021-07-26] MEDS: Piperacillin/Tazobactam 3.375 GM in 0.9 % Sodium Chloride Mini Bag 100 ML IVPB SCH ×3 (01:10→18:53)
[2021-07-26 02:26] LABS: Basophils % 0.2 %; Eosinophils % 0.3 %; Hematocrit 33.4 % (35.3-44.9); Hemoglobin 10.1 g/dL (11.5-15.4); Immature Granulocytes % 0.9 % (0-4); Lymphocytes # 2.4 K/mcL (0.6-4.6); Lymphocytes % 37.4 %; Mean Corpuscular HGB Conc 30.2 g/dL (31.6-35.5); Mean Corpuscular Hemoglobin 27.2 pg (28.0-33.3); Mean Platelet Volume 9.9 fL (9.4-12.4); Monocytes # 0.1 K/mcL (0.0-1.3); Monocytes % 1.2 %; Neutrophils # 3.9 K/mcL (1.6-8.9); Platelet Count 173 K/mcL (140-400); Red Blood Count 3.71 M/mcL (3.82-4.97); Red Cell Distribution Width 15.8 % (11.5-14.5); White Blood Count 6.5 K/mcL (4.3-11.1)
[2021-07-26 02:46] LABS: Calcium 8.4 mg/dL (8.6-10.3); Magnesium 2.4 mg/dL (1.6-2.6); Phosphorous 2.9 mg/dL (2.7-4.5); Potassium 3.7 mEq/L (3.5-5.1)
[2021-07-26] MEDS: Doxycycline 100 MG in 0.9 % Sodium Chloride Mini Bag 100 ML IVPB SCH ×2 (05:01→17:51)
[2021-07-26] MEDS: Aspirin 81 MG TAB.CHEW PO SCH (07:15)
[2021-07-26] MEDS: *HR* LORazepam 0.5 MG TABLET PO SCH ×2 (07:16→20:45)
[2021-07-26] MEDS: Divalproex Sodium 125 MG Sprinkle Capsule (DR) PO SCH ×2 (07:16→20:45)
[2021-07-26] MEDS: Furosemide 20 MG TABLET PO SCH (07:16)
[2021-07-26] MEDS: NILOTINIB HCL 200 MG PO SCH ×2 (07:17→20:46)
[2021-07-26] MEDS: Magnesium Oxide 400 MG TABLET PO SCH (07:17)
[2021-07-26] MEDS: Fenofibrate 54 MG TABLET PO SCH (07:17)
[2021-07-26] MEDS: Perphenazine 2 MG TABLET PO SCH (07:17)
[2021-07-26] MEDS: Acetaminophen 650 MG RECTAL SUPP RC PRN ×2 (08:04→15:03)
[2021-07-26] MEDS: D5% in 0.45% NACL 1,000 ML IVC SCH (12:18)
[2021-07-26] MEDS ORDERED: Acetaminophen IV 1,000 MG/100 ML BAG IVPB ONE (18:05)
[2021-07-26] MEDS: *HR* Heparin 5,000 UNIT/ML VIAL SQ SCH (18:53)
[2021-07-26] MEDS ORDERED: Ipratropium/Albuterol Neb 3 ML IH SCH (20:00)
[2021-07-26] MEDS: Ipratropium 1 PUFF INHALER IH SCH (23:46)
[2021-07-27] MEDS: Piperacillin/Tazobactam 3.375 GM in 0.9 % Sodium Chloride Mini Bag 100 ML IVPB SCH ×3 (00:54→17:16)
[2021-07-27] MEDS: D5% in 0.45% NACL 1,000 ML IVC SCH ×2 (00:57→19:28)
[2021-07-27] MEDS: Ipratropium 1 PUFF INHALER IH SCH ×6 (04:25→23:43)
[2021-07-27] MEDS: Insulin LISPRO 300 UNITS/3 ML VIAL SUBQ SCH ×4 (04:38→17:41)
[2021-07-27] MEDS: Doxycycline 100 MG in 0.9 % Sodium Chloride Mini Bag 100 ML IVPB SCH (05:56)
[2021-07-27] MEDS: *HR* Heparin 5,000 UNIT/ML VIAL SQ SCH ×2 (05:56→17:17)
[2021-07-27 08:04] LABS: Basophils % 0.2 %; Eosinophils % 0.4 %; Hematocrit 29.1 % (35.3-44.9); Hemoglobin 8.7 g/dL (11.5-15.4); Immature Granulocytes % 1.6 % (0-4); Lymphocytes # 2.2 K/mcL (0.6-4.6); Lymphocytes % 38.5 %; Mean Corpuscular HGB Conc 29.9 g/dL (31.6-35.5); Mean Corpuscular Hemoglobin 26.8 pg (28.0-33.3); Mean Corpuscular Volume 89.5 fL (83.0-100.0); Mean Platelet Volume 9.9 fL (9.4-12.4); Monocytes # 0.1 K/mcL (0.0-1.3); Monocytes % 1.3 %; Neutrophils # 3.3 K/mcL (1.6-8.9); Platelet Count 139 K/mcL (140-400); Red Blood Count 3.25 M/mcL (3.82-4.97); Red Cell Distribution Width 15.9 % (11.5-14.5); White Blood Count 5.6 K/mcL (4.3-11.1)
[2021-07-27 08:24] LABS: Platelet Estimate Slight Decrease (Normal)
[2021-07-27 08:25] LABS: Anisocytosis 1+ (Not Present); Microcytosis Present (Not Present); Reactive Lymphocytes Present (Not Present)
[2021-07-27 08:30] LABS: BUN/Creatinine Ratio 26 (6-26); Blood Urea Nitrogen 21 mg/dL (8-23); Calcium 8.5 mg/dL (8.6-10.3); Carbon Dioxide 20 mEq/L (23-29); Chloride 124 mEq/L (98-107); Glucose 114 mg/dL (70-105); Osmolality,Calculated 320 (280-300); Phosphorous 1.2 mg/dL (2.7-4.5); Potassium 3.4 mEq/L (3.5-5.1); Sodium 153 mEq/L (136-145); eGFR For African Americans > 60 (> 60); eGFR For Non-African Americans > 60 (> 60)
[2021-07-27] MEDS: Aspirin 81 MG TAB.CHEW PO SCH (09:25)
[2021-07-27] MEDS: Furosemide 20 MG TABLET PO SCH (09:26)
[2021-07-27] MEDS: *HR* LORazepam 0.5 MG TABLET PO SCH ×2 (09:26→22:13)
[2021-07-27] MEDS: Divalproex Sodium 125 MG Sprinkle Capsule (DR) PO SCH ×2 (09:26→22:14)
[2021-07-27] MEDS: Fenofibrate 54 MG TABLET PO SCH (09:27)
[2021-07-27] MEDS: Magnesium Oxide 400 MG TABLET PO SCH (09:27)
[2021-07-27] MEDS: NILOTINIB HCL 200 MG PO SCH ×2 (09:27→22:14)
[2021-07-27] MEDS: Perphenazine 2 MG TABLET PO SCH (09:27)
[2021-07-27] MEDS ORDERED: Potassium Phosphate 44 MEQ in 0.9 % Sodium Chloride 250 ML IVPB ONE (11:03)
[2021-07-27] MEDS: Acetaminophen IV 1,000 MG/100 ML BAG IVPB SCH ×2 (12:22→22:26)
[2021-07-27] MEDS: D5% in Water 1,000 ML IVC SCH (12:39)
[2021-07-27] MEDS ORDERED: Acetaminophen IV 1,000 MG/100 ML BAG IVPB SCH (16:00)
[2021-07-28] MEDS: Piperacillin/Tazobactam 3.375 GM in 0.9 % Sodium Chloride Mini Bag 100 ML IVPB SCH ×3 (00:21→16:09)
[2021-07-28] MEDS: Insulin LISPRO 300 UNITS/3 ML VIAL SUBQ SCH ×4 (00:21→17:45)
[2021-07-28] MEDS: D5% in Water 1,000 ML IVC SCH ×2 (02:33→12:44)
[2021-07-28] MEDS: Ipratropium 1 PUFF INHALER IH SCH ×6 (04:10→23:43)
[2021-07-28] MEDS: Acetaminophen IV 1,000 MG/100 ML BAG IVPB SCH ×4 (04:32→21:42)
[2021-07-28] MEDS: *HR* Heparin 5,000 UNIT/ML VIAL SQ SCH ×2 (05:48→16:10)
[2021-07-28 06:44] LABS: Basophils % 0.2 %; Eosinophils # 0.1 K/mcL (0.0-0.6); Eosinophils % 1.8 %; Hematocrit 28.4 % (35.3-44.9); Hemoglobin 8.6 g/dL (11.5-15.4); Immature Granulocytes % 0.5 % (0-4); Lymphocytes % 39.6 %; Mean Corpuscular HGB Conc 30.3 g/dL (31.6-35.5); Mean Corpuscular Hemoglobin 27.2 pg (28.0-33.3); Mean Corpuscular Volume 89.9 fL (83.0-100.0); Mean Platelet Volume 10.2 fL (9.4-12.4); Monocytes # 0.1 K/mcL (0.0-1.3); Monocytes % 1.1 %; Neutrophils # 3.2 K/mcL (1.6-8.9); Platelet Count 117 K/mcL (140-400); Red Blood Count 3.16 M/mcL (3.82-4.97); Red Cell Distribution Width 16.1 % (11.5-14.5); Segmented Neutrophils % 56.8 %; White Blood Count 5.7 K/mcL (4.3-11.1)
[2021-07-28 06:52] LABS: Lymphocytes # 2.3 K/mcL (0.6-4.6)
[2021-07-28 07:01] LABS: BUN/Creatinine Ratio 24 (6-26); Blood Urea Nitrogen 18 mg/dL (8-23); Calcium 8.2 mg/dL (8.6-10.3); Carbon Dioxide 19 mEq/L (23-29); Chloride 119 mEq/L (98-107); Glucose 111 mg/dL (70-105); Osmolality,Calculated 311 (280-300); Potassium 3.6 mEq/L (3.5-5.1); Sodium 149 mEq/L (136-145); eGFR For African Americans > 60 (> 60); eGFR For Non-African Americans > 60 (> 60)
[2021-07-28 07:14] LABS: Microcytosis Present (Not Present); Platelet Estimate Slight Decrease (Normal)
[2021-07-28] MEDS: Divalproex Sodium 125 MG Sprinkle Capsule (DR) PO SCH ×2 (08:16→19:34)
[2021-07-28] MEDS: Furosemide 20 MG TABLET PO SCH (08:16)
[2021-07-28] MEDS: Perphenazine 2 MG TABLET PO SCH (08:16)
[2021-07-28] MEDS: Magnesium Oxide 400 MG TABLET PO SCH (08:16)
[2021-07-28] MEDS: *HR* LORazepam 0.5 MG TABLET PO SCH ×2 (08:16→19:34)
[2021-07-28] MEDS: NILOTINIB HCL 200 MG PO SCH (08:16)
[2021-07-28] MEDS: Fenofibrate 54 MG TABLET PO SCH (08:16)
[2021-07-28] MEDS: Aspirin 81 MG TAB.CHEW PO SCH (08:16)
[2021-07-28] MEDS ORDERED: *HR* Propofol 200 MG/20 ML VIAL IVP ONE (14:15)
[2021-07-28] MEDS ORDERED: Lidocaine -MPF 2% 5 ML VIAL ONE (14:16)
[2021-07-29] MEDS: Insulin LISPRO 300 UNITS/3 ML VIAL SUBQ SCH ×4 (01:16→16:30)
[2021-07-29] MEDS: Piperacillin/Tazobactam 3.375 GM in 0.9 % Sodium Chloride Mini Bag 100 ML IVPB SCH ×2 (01:22→07:53)
[2021-07-29] MEDS: Ipratropium 1 PUFF INHALER IH SCH ×6 (03:37→21:32)
[2021-07-29] MEDS: Acetaminophen IV 1,000 MG/100 ML BAG IVPB SCH ×2 (04:52→12:30)
[2021-07-29] MEDS: *HR* Heparin 5,000 UNIT/ML VIAL SQ SCH ×2 (06:16→17:47)
[2021-07-29 06:47] LABS: Hematocrit 21.6 % (35.3-44.9); Hemoglobin 6.5 g/dL (11.5-15.4); Mean Corpuscular HGB Conc 30.1 g/dL (31.6-35.5); Mean Corpuscular Hemoglobin 26.9 pg (28.0-33.3); Mean Corpuscular Volume 89.3 fL (83.0-100.0); Mean Platelet Volume 10.3 fL (9.4-12.4); Red Blood Count 2.42 M/mcL (3.82-4.97); White Blood Count 4.3 K/mcL (4.3-11.1)
[2021-07-29 07:04] LABS: BUN/Creatinine Ratio 28 (6-26); Blood Urea Nitrogen 13 mg/dL (8-23); Calcium 6.6 mg/dL (8.6-10.3); Carbon Dioxide 17 mEq/L (23-29); Chloride 111 mEq/L (98-107); Glucose 88 mg/dL (70-105); Osmolality,Calculated 282 (280-300); Potassium 2.9 mEq/L (3.5-5.1); Sodium 136 mEq/L (136-145); eGFR For African Americans > 60 (> 60); eGFR For Non-African Americans > 60 (> 60)
[2021-07-29 08:17] LABS: Hematocrit 24.6 % (35.3-44.9); Hemoglobin 7.5 g/dL (11.5-15.4); Mean Corpuscular HGB Conc 30.5 g/dL (31.6-35.5); Mean Corpuscular Hemoglobin 26.6 pg (28.0-33.3); Mean Corpuscular Volume 87.2 fL (83.0-100.0); Mean Platelet Volume 10.7 fL (9.4-12.4); Platelet Count 117 K/mcL (140-400); Red Blood Count 2.82 M/mcL (3.82-4.97); White Blood Count 4.3 K/mcL (4.3-11.1)
[2021-07-29 08:32] LABS: Platelet Estimate Normal (Normal)
[2021-07-29 08:45] LABS: Neutrophils # 2.8 K/mcL (1.6-8.9)
[2021-07-29 08:46] LABS: Eosinophils # 0.1 K/mcL (0.0-0.6); Lymphocytes # 1.4 K/mcL (0.6-4.6); Reactive Lymphocytes Present (Not Present); Smudge Cells Present (Not Present)
[2021-07-29 11:01] LABS: BUN/Creatinine Ratio 26 (6-26); Blood Urea Nitrogen 15 mg/dL (8-23); Calcium 8.1 mg/dL (8.6-10.3); Carbon Dioxide 20 mEq/L (23-29); Chloride 117 mEq/L (98-107); Glucose 98 mg/dL (70-105); Osmolality,Calculated 303 (280-300); Potassium 3.4 mEq/L (3.5-5.1); Sodium 146 mEq/L (136-145); eGFR For African Americans > 60 (> 60); eGFR For Non-African Americans > 60 (> 60)
[2021-07-29] MEDS ORDERED: Potassium Chloride Elixir 20 MEQ/15 ML UDC GTUBE ONE (12:43)
[2021-07-29] MEDS: *HR* LORazepam 0.5 MG TABLET GTUBE SCH (20:55)
[2021-07-29] MEDS: Valproic Acid Oral Soln 250 MG/5 ML UDC GTUBE SCH (21:00)
[2021-07-30] MEDS: Ipratropium 1 PUFF INHALER IH SCH ×7 (00:19→23:38)
[2021-07-30] MEDS: Insulin LISPRO 300 UNITS/3 ML VIAL SUBQ SCH ×4 (00:58→17:33)
[2021-07-30 04:39] LABS: Basophils % 0.2 %; Red Blood Count 2.88 M/mcL (3.82-4.97)
[2021-07-30 04:40] LABS: Eosinophils # 0.1 K/mcL (0.0-0.6); Hematocrit 26.2 % (35.3-44.9); Hemoglobin 7.5 g/dL (11.5-15.4); Immature Granulocytes % 0.9 % (0-4); Immature Platelets 7.4 % (1.1-6.1); Lymphocytes # 1.7 K/mcL (0.6-4.6); Lymphocytes % 37.9 %; Mean Corpuscular HGB Conc 28.6 g/dL (31.6-35.5); Monocytes # 0.1 K/mcL (0.0-1.3); Monocytes % 1.3 %; Neutrophils # 2.6 K/mcL (1.6-8.9); Nucleated Red Blood Cells 0.4 /100 WBC (0); Segmented Neutrophils % 57.7 %; White Blood Count 4.5 K/mcL (4.3-11.1)
[2021-07-30 04:48] LABS: Platelet Count 94 K/mcL (140-400)
[2021-07-30 05:02] LABS: BUN/Creatinine Ratio 20 (6-26); Blood Urea Nitrogen 10 mg/dL (8-23); Carbon Dioxide 18 mEq/L (23-29); Chloride 115 mEq/L (98-107); Glucose 92 mg/dL (70-105); Osmolality,Calculated 293 (280-300); Potassium 3.6 mEq/L (3.5-5.1); Sodium 142 mEq/L (136-145); eGFR For African Americans > 60 (> 60); eGFR For Non-African Americans > 60 (> 60)
[2021-07-30 05:03] LABS: Microcytosis Present (Not Present); Platelet Estimate Slight Decrease (Normal); Reactive Lymphocytes Present (Not Present)
[2021-07-30] MEDS: *HR* Heparin 5,000 UNIT/ML VIAL SQ SCH ×2 (05:26→17:33)
[2021-07-30] MEDS: Perphenazine 2 MG TABLET GTUBE SCH (08:06)
[2021-07-30] MEDS: Magnesium Oxide 400 MG TABLET GTUBE SCH (08:06)
[2021-07-30] MEDS: Furosemide Oral Soln 40 MG/4 ML UDC GTUBE SCH (08:06)
[2021-07-30] MEDS: *HR* LORazepam 0.5 MG TABLET GTUBE SCH ×2 (08:06→19:45)
[2021-07-30] MEDS: Aspirin 81 MG TAB.CHEW GTUBE SCH (08:06)
[2021-07-30 09:08] LABS: Ferritin 512 ng/mL (10-120); Iron < 10 mcg/dL (50-170); Transferrin 125 mg/dL (203-362)
[2021-07-30] MEDS: Valproic Acid Oral Soln 250 MG/5 ML UDC GTUBE SCH ×2 (09:47→19:45)
[2021-07-30 13:42] LABS: Magnesium 1.5 mg/dL (1.6-2.6); Phosphorous 1.9 mg/dL (2.7-4.5)
[2021-07-30] MEDS ORDERED: Potassium Phosphate 44 MEQ in 0.9 % Sodium Chloride 250 ML IVPB ONE (13:56)
[2021-07-30] MEDS: Iron Sucrose Complex 250 MG in 0.9 % Sodium Chloride 250 ML IVPB SCH (14:05)
[2021-07-30] MEDS: *HR* LORazepam 0.5 MG TABLET PO SCH (19:19)
[2021-07-30] MEDS: Divalproex Sodium 125 MG Sprinkle Capsule (DR) PO SCH (19:19)
[2021-07-30] MEDS: Aspirin 81 MG TAB.CHEW PO SCH (19:19)
[2021-07-30] MEDS: Furosemide 20 MG TABLET PO SCH (19:19)
[2021-07-30] MEDS: Perphenazine 2 MG TABLET PO SCH (19:20)
[2021-07-30] MEDS: Fenofibrate 54 MG TABLET PO SCH (19:20)
[2021-07-30] MEDS: Magnesium Oxide 400 MG TABLET PO SCH (19:20)
[2021-07-31] MEDS: Insulin LISPRO 300 UNITS/3 ML VIAL SUBQ SCH ×4 (00:51→19:36)
[2021-07-31 01:58] LABS: Hematocrit 29.1 % (35.3-44.9); Hemoglobin 8.9 g/dL (11.5-15.4); Mean Corpuscular HGB Conc 30.6 g/dL (31.6-35.5); Mean Corpuscular Hemoglobin 26.4 pg (28.0-33.3); Mean Corpuscular Volume 86.4 fL (83.0-100.0); Mean Platelet Volume 10.7 fL (9.4-12.4); Platelet Count 118 K/mcL (140-400); Red Blood Count 3.37 M/mcL (3.82-4.97); Red Cell Distribution Width 15.8 % (11.5-14.5); White Blood Count 4.9 K/mcL (4.3-11.1)
[2021-07-31 02:19] LABS: Alanine Aminotransferase 12 Units/L (7-52); Albumin 2.8 g/dL (3.5-5.7); Albumin/Globulin Ratio 0.9 (1.1-2.2); Alkaline Phosphatase 96 Units/L (34-104); Aspartate Amino Transferase 19 Units/L (13-39); BUN/Creatinine Ratio 23 (6-26); Bilirubin,Total 0.3 mg/dL (0.3-1.0); Blood Urea Nitrogen 9 mg/dL (8-23); Calcium 8.1 mg/dL (8.6-10.3); Carbon Dioxide 18 mEq/L (23-29); Chloride 111 mEq/L (98-107); Glucose 88 mg/dL (70-105); Magnesium 1.8 mg/dL (1.6-2.6); Osmolality,Calculated 288 (280-300); Phosphorous 3.5 mg/dL (2.7-4.5); Potassium 3.6 mEq/L (3.5-5.1); Sodium 140 mEq/L (136-145); Total Protein 5.8 g/dL (6.4-8.9); eGFR For African Americans > 60 (> 60); eGFR For Non-African Americans > 60 (> 60)
[2021-07-31] MEDS: Ipratropium 1 PUFF INHALER IH SCH ×6 (03:13→23:21)
[2021-07-31] MEDS: *HR* Heparin 5,000 UNIT/ML VIAL SQ SCH ×2 (05:21→17:07)
[2021-07-31] MEDS: Aspirin 81 MG TAB.CHEW GTUBE SCH (10:25)
[2021-07-31] MEDS: Magnesium Oxide 400 MG TABLET GTUBE SCH (10:25)
[2021-07-31] MEDS: *HR* LORazepam 0.5 MG TABLET GTUBE SCH ×2 (10:26→19:56)
[2021-07-31] MEDS: Furosemide Oral Soln 40 MG/4 ML UDC GTUBE SCH (10:26)
[2021-07-31] MEDS: Perphenazine 2 MG TABLET GTUBE SCH (10:26)
[2021-07-31] MEDS: Valproic Acid Oral Soln 250 MG/5 ML UDC GTUBE SCH ×2 (10:27→19:56)
[2021-07-31] MEDS: Iron Sucrose Complex 250 MG in 0.9 % Sodium Chloride 250 ML IVPB SCH (10:46)
[2021-08-01] MEDS: Insulin LISPRO 300 UNITS/3 ML VIAL SUBQ SCH ×2 (00:17→05:48)
[2021-08-01] MEDS: Ipratropium 1 PUFF INHALER IH SCH ×2 (04:00→09:29)
[2021-08-01] MEDS: *HR* Heparin 5,000 UNIT/ML VIAL SQ SCH (05:29)
[2021-08-01 05:47] LABS: Hematocrit 28.7 % (35.3-44.9); Hemoglobin 9.1 g/dL (11.5-15.4); Mean Corpuscular HGB Conc 31.7 g/dL (31.6-35.5); Mean Corpuscular Volume 85.2 fL (83.0-100.0); Mean Platelet Volume 11.2 fL (9.4-12.4); Platelet Count 130 K/mcL (140-400); Red Blood Count 3.37 M/mcL (3.82-4.97); Red Cell Distribution Width 15.4 % (11.5-14.5); White Blood Count 5.3 K/mcL (4.3-11.1)
[2021-08-01 06:09] LABS: Alanine Aminotransferase 14 Units/L (7-52); Albumin 2.9 g/dL (3.5-5.7); Albumin/Globulin Ratio 0.9 (1.1-2.2); Alkaline Phosphatase 144 Units/L (34-104); Aspartate Amino Transferase 22 Units/L (13-39); BUN/Creatinine Ratio 16 (6-26); Bilirubin,Total 0.3 mg/dL (0.3-1.0); Blood Urea Nitrogen 7 mg/dL (8-23); Calcium 8.8 mg/dL (8.6-10.3); Carbon Dioxide 22 mEq/L (23-29); Chloride 109 mEq/L (98-107); Globulin 3.1 g/dL (2.4-3.5); Glucose 119 mg/dL (70-105); Magnesium 1.6 mg/dL (1.6-2.6); Osmolality,Calculated 297 (280-300); Phosphorous 2.4 mg/dL (2.7-4.5); Potassium 3.3 mEq/L (3.5-5.1); Sodium 144 mEq/L (136-145); eGFR For African Americans > 60 (> 60); eGFR For Non-African Americans > 60 (> 60)
[2021-08-01 07:42] VITALS: BP 168/89; PULSE 111; TEMP 99; O2SAT 92
[2021-08-01] MEDS ORDERED: Potassium Phosphate 44 MEQ in 0.9 % Sodium Chloride 250 ML IVPB ONE (08:12)
[2021-08-01] MEDS: Furosemide Oral Soln 40 MG/4 ML UDC GTUBE SCH (09:05)
[2021-08-01] MEDS: Perphenazine 2 MG TABLET GTUBE SCH (09:06)
[2021-08-01] MEDS: Magnesium Oxide 400 MG TABLET GTUBE SCH (09:07)
[2021-08-01] MEDS: *HR* LORazepam 0.5 MG TABLET GTUBE SCH (09:07)
[2021-08-01] MEDS: Valproic Acid Oral Soln 250 MG/5 ML UDC GTUBE SCH (09:07)
[2021-08-01] MEDS: Aspirin 81 MG TAB.CHEW GTUBE SCH (09:07)
[2021-08-01] MEDS ORDERED: Furosemide 20 MG/2 ML VIAL IVP ONE (09:38)
[2021-08-01] MEDS: Iron Sucrose Complex 250 MG in 0.9 % Sodium Chloride 250 ML IVPB SCH (09:38)
== END 2021-08-01 10:32 | DRG 871 ==
LOC: 3ANU → SUATTDRO 19:02
PROVIDERS: ADMIT Student in an Organized Health Care Education/Training Program; ATTEND Family Medicine